=== PATIENT | female | born 1935 | race Caucasian/White ===

== ENCOUNTER 2016-05-05 19:33 | Inpatient (IN) | payer OTHER ==
[~2016-05-05] VITALS: Ht 160 cm; Wt 70.2 kg
[~2016-05-05 19:33] MED LIST: ACET-1256 PO; CAMPLOT10 TOP; CARBGEL OPB; CHOL100010 PO; CLX20 PO; DLCS PR; GABA1CAP PO; HMLI SC; INSDGI SC; IPRASOL4 INH; KETO2SHA TOP; MENTOIN TOP; SENN-65 PO; SIMV10TA2 PO
[2016-05-05 20:13] LABS: BASO % 0.1 %; BASO ABS # 0.02 K/uL (0-0.2); COMPLETE YES; HEMATOCRIT 44.8 % (37-47); IG% 0.3 %; LYMPH % 6.8 %; LYMPH ABS # 1.52 K/uL (1.2-3.4); MEAN CELL VOLUME 83.4 fL (80-100); MEAN CORPUSCULAR HEMOGLOBIN 28.1 pg (25-34); MEAN CORPUSCULAR HGB CONC 33.7 g/dl (32-36); MONO % 6.8 %; PLATELET COUNT 323 K/uL (130-400); RED BLOOD COUNT 5.37 M/uL (4.2-5.4); WHITE BLOOD COUNT 22.42 K/uL (4.8-10.8)
[2016-05-05] MEDS ORDERED: PIPERACILLIN/TAZOBACTAM 4.5 GM/100ML D5W IV STA (20:17)
--- NOTE | 2016-05-05 20:20 | DIAGNOSTIC IMAGING REPORT ---
CHEST ONE VIEW PORTABLE CLINICAL HISTORY: Altered mental status. COMPARISON STUDY: Chest radiograph October 30, 2015. FINDINGS: Lung volumes are normal. There is no consolidation. There is no evidence of pulmonary edema. Cardiomediastinal silhouette is normal. The appearance of the chest is unchanged. IMPRESSION: No acute cardiopulmonary findings. Electronically signed by: Haider Payne M.D. 05/05/2016 8:19 PM
[2016-05-05 20:25] LABS: PARTIAL THROMBOPLASTIN RATIO 0.8; PROTHROMBIN TIME (PATIENT) 10.7 SECONDS (9.0-12.0)
[2016-05-05 20:29] LABS: ALKALINE PHOSPHATASE 133 U/L (45-117); ALT/SGPT 28 U/L (12-78); AST/SGOT 14 U/L (15-37); BLOOD UREA NITROGEN 71 mg/dl (7-18); BUN/CREATININE RATIO 28.5 (10-20); CARBON DIOXIDE 31 mmol/L (21-32); CHLORIDE 115 mmol/L (98-107); GLUCOSE 356 mg/dl (70-99); POTASSIUM 3.8 mmol/L (3.5-5.1); SODIUM 156 mmol/L (136-145)
[2016-05-05] MEDS ORDERED: SODIUM CHLORIDE 0.9% 1000ML 1,000 ML IV STA (20:37)
[2016-05-05 20:40] LABS: BETA-HYDROXYBUTYRATE 1.69 mg/dL (0.2-2.81)
[2016-05-05 20:42] LABS: ISTAT HEMOGLOBIN 13.3 g/dl (12.0-16.0); ISTAT IONIZED CALCIUM 1.32 mmol/l (1.12-1.32)
[2016-05-05 21:11] LABS: MANUAL MICROSCOPIC REQUIRED? YES; URINE APPEARANCE SL CLOUDY (CLEAR); URINE BILIRUBIN NEG (NEG); URINE COLOR YELLOW; URINE NITRITE NEG (NEG); UROBILINOGEN NEG (NEG)
[2016-05-05 21:19] LABS: REVIEW REQ? NO
[2016-05-05 21:22] LABS: URINE RBC 0-4 /hpf (0-4)
[2016-05-05 21:23] LABS: URINE BACTERIA 2+ (NEG)
[2016-05-05 21:24] LABS: ZZURINE CULT IF INDIC CATH YES
[2016-05-05] MEDS ORDERED: INSULIN GLARGINE PER SC STA (21:38)
--- NOTE | 2016-05-05 21:40 | DIAGNOSTIC IMAGING REPORT ---
CT OF THE HEAD WITHOUT CONTRAST CLINICAL HISTORY: Altered mental status. COMPARISON STUDY: Head CT November 05, 2015. CT DOSE: 614.27 mGy.cm TECHNIQUE: Helical axial images of the head were obtained without IV contrast. Automated exposure control was utilized for the study. FINDINGS: No acute intracranial hemorrhage, midline shift or mass effect is present. Ventricular system is stable. The basilar cisterns are patent. Mild white matter hypodensity suggests small vessel disease. There are no findings to suggest acute dural sinus thrombosis or acute territorial infarct. There is no calvarial fracture. There is trace fluid within the bilateral mastoid air cells. There is minimal mucosal thickening of the sinuses. IMPRESSION: No acute intracranial findings. Electronically signed by: Haider Payne M.D. 05/05/2016 9:38 PM
[2016-05-05] MEDS ORDERED: GABA-113 PO (21:59)
[2016-05-05] MEDS ORDERED: INSU3INJ3 SQ (21:59)
[2016-05-05] MEDS ORDERED: ARTI1SOL11 OPB (22:26)
[2016-05-05] MEDS ORDERED: BACI500O11 TOP (22:26)
[2016-05-05] MEDS ORDERED: [UNRECOGNIZED DRUG - CODE] EXT (22:26)
[2016-05-05] MEDS ORDERED: MENTOIN12 EXT (22:26)
[2016-05-05] MEDS ORDERED: DEXT40GE PO (22:26)
[2016-05-05] MEDS ORDERED: MOMLX PO (22:26)
[2016-05-05] MEDS ORDERED: SODI1ENE PR (22:26)
[2016-05-05] MEDS ORDERED: BISA10SU38 PR (22:26)
[2016-05-05] MEDS ORDERED: TYL325X PO (22:26)
[2016-05-05] MEDS ORDERED: GLUCOSE 10 TABS/TUBE PO PRN (22:45)
[2016-05-05] MEDS ORDERED: GLUCAGON FOR INJ 1 MG VIAL SQ PRN (22:45)
[2016-05-05] MEDS ORDERED: ONDANSETRON INJ 2 MG/ML 2 ML VIAL IV PRN (22:45)
[2016-05-05] MEDS ORDERED: GLUCOSE 40% GEL 15 GM TUBE PO PRN (22:45)
[2016-05-05] MEDS ORDERED: DEXTROSE 50% 50 ML SYR IV PRN (22:45)
[2016-05-05] MEDS ORDERED: ACETAMINOPHEN 325 MG TAB PO PRN (22:45)
[2016-05-05] MEDS ORDERED: SODIUM CHLORIDE 0.9% 1000ML 1,000 ML IV SCH (23:00)
[2016-05-05] MEDS ORDERED: PHARMACY GLYCEMIC MGMT CONSULT PRN (23:02)
--- NOTE | 2016-05-05 23:18 | Pharmacy Progress Note ---
Glycemic Control Intl Consult Date of Service May 05, 2016. Scope Glycemic Pharmacist consulted by Leon Esparza on 05/05/16 for glycemic control and to write orders per [facility] inpatient glycemic control protocol Objective Weight (Kilograms): 64.600 Accuchecks BSG (last 24hrs): Test 05/05/16 19:30 Random Glucose 356 mg/dl (70-99) Laboratory Data (last 24hrs) Test 05/05/16 19:30 05/05/16 20:30 Anion Gap 10.0 mmol/L 21.0 mmol/L BUN/Creatinine Ratio 28.5 Blood Urea Nitrogen 71 mg/dl Creatinine 2.50 mg/dl Potassium Level 3.8 mmol/L Sodium Level 156 mmol/L White Blood Count 22.42 K/uL Red Blood Count 5.37 M/uL Hemoglobin 15.1 g/dL Hematocrit 44.8 % Mean Corpuscular Volume 83.4 fL Mean Corpuscular Hemoglobin 28.1 pg Mean Corpuscular Hemoglobin Concent 33.7 g/dl Platelet Count 323 K/uL Mean Platelet Volume 11.0 fL Neutrophils (%) (Auto) 86.0 % Lymphocytes (%) (Auto) 6.8 % Monocytes (%) (Auto) 6.8 % Eosinophils (%) (Auto) 0.0 % Basophils (%) (Auto) 0.1 % Neutrophils # (Auto) 19.29 K/uL Lymphocytes # (Auto) 1.52 K/uL Monocytes # (Auto) 1.52 K/uL Eosinophils # (Auto) 0.00 K/uL Basophils # (Auto) 0.02 K/uL Recent Pertinent Medications Outpatient Anti-diabetic Regimen: * Levemir 10 units SQ q HS * Humalog 4 units BID, 6 units daily The patient is currently receiving: * Basal insulin: none at this time * Correctional Insulin: NovoLog Correction per scale AC/HS Goal Range: Low 110 mg/dL - High 150 mg/dL Correction Factor: 30 mg/dL/unit * Prandial insulin: Per carb ratio of 1 unit per 10 grams CHO consumed Risk Factors for Insulin Resistance: * Steroids: none * Infection: Zosyn * Pressors: none * IVF: NSS bolus in ED * Recent Surgery: none * Diet: T2DM --> NPO * Mechanical Ventilation: n/a Assessment & Plan ASSESSMENT: * ADA & AACE recommend a goal blood sugar range 140-180 mg/dl for the majority of critically ill & non-critically ill patients. However, more stringent targets may be selected in individual cases. 05/05/16 * patient uses both basal and bolus insulin at home - elevated BSGs on admission * one time dose of Lantus given in ED * Will continue with basal/bolus insulin upon admission * basal dose will be determined by AM glycemic RPh * A1c - unknown at time of consult PLAN FOR INPATIENT GLYCEMIC CONTROL: * basal insulin to be determined on 05/06 by AM glycemic RPh * Continue with NovoLog AC and HS or q6H if NPO * Correction factor: 35mg/dL/unit * Carb ratio: 1 unit per 15g of CHO consumed * Goal range: 120-160mg/dL - CF/CR based on patient weight and a stress of 2 * A1c - order with AM labs * add to discharge instructions * Please note that the plan above was derived based on current level of insulin resistance and hospital stress. These recommendations are appropriate for inpatient admission only. Plan of care upon discharge will need to be reassessed to avoid potential outpatient hypo/hyperglycemia. Thank you.
[2016-05-05] MEDS ORDERED: INSULIN ASPART 100 UNITS/ML 3 ML PEN SC SCH ×2 (23:30)
--- NOTE | 2016-05-05 23:30 | History and Physical ---
History & Physical Date & Time of Service: May 05, 2016 at 22:45 Chief Complaint: Altered Mental Status, Hyperglycemia Primary Care Physician: Marry Rueda M.D. History of Present Illness Source: clinic records, snf This is an 80 year old female with PMH of Alzheimer's dementia, DM type 2, anxiety, depression, and other problems listed below who was sent to the ED from [facility] for hyperglycemia and altered mental status. I am unable to obtain history from the patient as she is nonverbal at this time. Per [facility] staff, this morning patient's blood sugar was >600 this am. Insulin was given, blood sugar remained in 400s, and additional insulin was given. Starting today patient was found to be less responsive than usual. At baseline she is minimally verbal with one word answers, but today she was nonverbal. Vital signs were stable at facility without any fevers. [facility] staff notes chronic cough and states she is on a pureed diet with honey thick liquids due to aspiration concerns. She requires a 2 person assist for ambulation and is dependent for ADL's. Patient ate 100% of breakfast but no lunch or dinner. [facility] staff denies recent SOB, vomiting, diarrhea. On review of clinic notes patient was seen y Dr. Rueda on 04/23 and her insulin dose was decreased due to episodic hypoglycemia. She was noted to be nonverbal during that examination. Past Medical/Surgical History Medical Problems: (1) Abnormality of gait Status: Chronic (2) Alzheimer's dementia Status: Chronic (3) CKD (chronic kidney disease), stage III Status: Chronic (4) Dementia Status: Chronic (5) DM type 2 (diabetes mellitus, type 2) Status: Chronic (6) Dyslipidemia Status: Chronic (7) Fecal incontinence Status: Chronic (8) Urinary incontinence Status: Chronic (9) Visual loss, bilateral Status: Chronic Surgical Problems: (1) No significant past surgical history Status: Chronic Family History Unobtainable as patient is nonverbal. Social History Smoking Status: Unknown if Ever Smoked Marital Status: Housing status: snf Occupational Status: retired Immunizations History of Influenza Vaccine: No History of Tetanus Vaccine?: No History of Pneumococcal: Yes Pneumococcal Date: Jan 17, 2009 History of Hepatitis B Vaccine: No Multi-Drug Resistant Organisms History of MDRO: No Allergies Coded Allergies: No Known Allergies (Unverified , 05/05/16) Home Medications Scheduled Acetaminophen (Tylenol), 500 MG PO QID Artificial Tear Solution (Genteal Tears Liquid Drop 0.1-0.2-0.3 %), 1 DROP OPB QID Bacitracin (Topical) (Bacitracin), 1 APPLN TOP BID Cholecalciferol (Vitamin D), 2,000 INTER.UNIT PO DAILY Citalopram (Celexa *), 10 MG PO DAILY Gabapentin (Neurontin), 100 MG PO QAM Gabapentin (Neurontin), 300 MG PO HS Insulin Detemir (Levemir Flextouch), 10 UNITS SQ HS Insulin Lispro (Humalog), 4 UNITS SC BID Insulin Lispro (Humalog), 6 UNITS SC DAILY Ketoconazole (Topical) (Ketoconazole), 1 APPLN TOP 2XWK Menthol-Zinc Oxide (Risamine), 1 APPLN EXT TID Senna/Docusate Sod (Senokot S), 2 TAB PO DAILY Simvastatin (Zocor), 10 MG PO QPM Sodium Phosphates (Fleet Enema Six Pack), 1 EA ID UD Scheduled PRN Acetaminophen (Tylenol), 650 MG PO Q4 PRN for Pain Bisacodyl (Dulcolax), 1 SUPP ID UD PRN for Constipation Camphor & Menthol (Men-Phor), 1 APPLN EXT Q4 PRN for Itching Dextrose (Diabetic Use) (Insta-Glucose), 1 TUBE PO UD PRN for HYPOGLYCEMIA PROTOCOL Magnesium Hydroxide (Milk of Magnesia), 30 ML PO UD PRN for Constipation Review of Systems Unobtainable as patient is nonverbal. Physical Exam Vital Signs Date Time Temp Pulse Resp B/P Pulse Ox O2 Delivery O2 Flow Rate FiO2 05/05/16 21:49 78 18 131/66 97 Nasal Cannula 3.0 05/05/16 20:56 77 18 101/46 96 Room Air 05/05/16 20:40 77 20 97 Nasal Cannula 2.0 05/05/16 20:03 88 05/05/16 19:45 36.4 95 18 124/51 93 Room Air General Appearance: + thin, + pertinent finding (alert 80 year old female, awake, staring straight ahead, nonverbal) Head: normocephalic, atraumatic Eyes: normal inspection, PERRL, EOMI, sclerae normal ENT: normal ENT inspection, hearing grossly normal, pharynx normal, + pertinent finding (dry oral mucosa) Neck: supple, trachea midline Respiratory/Chest: lungs clear, normal breath sounds, no respiratory distress Cardiovascular: regular rate, rhythm, no murmur Abdomen/GI: normal bowel sounds, non tender, soft Extremities/Musculoskelatal: no calf tenderness, no pedal edema Neurologic/Psych: alert, normal mood/affect, oriented x 3, + pertinent finding (generally weak, could follow a few simple commands- could sqeeze hands and move toes bilaterally strength 2/5) Skin: normal color, warm/dry, + pertinent finding (skin is dry ) Diagnostics Laboratory Results Results Past 24 Hours Test 05/05/16 19:30 05/05/16 20:30 05/05/16 20:45 Range/Units White Blood Count 22.42 4.8-10.8 K/uL Red Blood Count 5.37 4.2-5.4 M/uL Hemoglobin 15.1 12.0-16.0 g/dL Hematocrit 44.8 37-47 % Mean Corpuscular Volume 83.4 80-100 fL Mean Corpuscular Hemoglobin 28.1 25-34 pg Mean Corpuscular Hemoglobin Concent 33.7 32-36 g/dl Platelet Count 323 130-400 K/uL Mean Platelet Volume 11.0 7.4-10.4 fL Neutrophils (%) (Auto) 86.0 % Lymphocytes (%) (Auto) 6.8 % Monocytes (%) (Auto) 6.8 % Eosinophils (%) (Auto) 0.0 % Basophils (%) (Auto) 0.1 % Neutrophils # (Auto) 19.29 1.4-6.5 K/uL Lymphocytes # (Auto) 1.52 1.2-3.4 K/uL Monocytes # (Auto) 1.52 0.11-0.59 K/uL Eosinophils # (Auto) 0.00 0-0.5 K/uL Basophils # (Auto) 0.02 0-0.2 K/uL RDW Standard Deviation 43.7 36.4-46.3 fL RDW Coefficient of Variation 14.5 11.5-14.5 % Immature Granulocyte % (Auto) 0.3 % Immature Granulocyte # (Auto) 0.07 0.00-0.02 K/uL Prothrombin Time 10.7 9.0-12.0 SECONDS Prothromb Time International Ratio 1.0 0.9-1.1 Activated Partial Thromboplast Time 20.3 21.0-31.0 SECONDS Partial Thromboplastin Ratio 0.8 Sodium Level 156 136-145 mmol/L Potassium Level 3.8 3.5-5.1 mmol/L Chloride Level 115 98-107 mmol/L Carbon Dioxide Level 31 21-32 mmol/L Anion Gap 10.0 21.0 16-25 mmol/L Blood Urea Nitrogen 71 7-18 mg/dl Creatinine 2.50 0.60-1.20 mg/dl Est Creatinine Clear Calc Drug Dose 16.0 ml/min Estimated GFR () 20.2 Estimated GFR (Non- 17.4 BUN/Creatinine Ratio 28.5 10-20 Random Glucose 356 70-99 mg/dl Calcium Level 11.0 8.5-10.1 mg/dl Total Bilirubin 0.3 0.2-1 mg/dl Direct Bilirubin < 0.1 0-0.2 mg/dl Aspartate Amino Transf (AST/SGOT) 14 15-37 U/L Alanine Aminotransferase (ALT/SGPT) 28 12-78 U/L Alkaline Phosphatase 133 45-117 U/L Troponin I < 0.015 0-0.045 ng/ml Total Protein 8.6 6.4-8.2 gm/dl Albumin 4.0 3.4-5.0 gm/dl Beta-Hydroxybutyric Acid 1.69 0.2-2.81 mg/dL Bedside Hemoglobin 13.3 12.0-16.0 g/dl Bedside Hematocrit 39 37-47 % Bedside Sodium 159 135-144 mEq/L Bedside Potassium 3.6 3.3-5.0 mEq/L Bedside Chloride 115 101-112 mEq/L Bedside Total CO2 27 24-31 mEq/l Bedside Blood Urea Nitrogen 59 7-18 mg/dl Bedside Creatinine 2.0 0.6-1.3 mg/dl Bedside Glucose (other) 316 70-99 mg/dl Bedside Ionized Calcium (Freddy) 1.32 1.12-1.32 mmol/l Urine Color YELLOW Urine Appearance SL CLOUDY CLEAR Urine pH 5.0 4.5-7.5 Urine Specific [place] 1.020 1.000-1.030 Urine Protein NEG NEG Urine Glucose (UA) 3+ NEG Urine Ketones NEG NEG Urine Occult Blood TRACE NEG Urine Nitrite NEG NEG Urine Bilirubin NEG NEG Urine Urobilinogen NEG NEG Urine Leukocyte Esterase NEG NEG Urine RBC 0-4 0-4 /hpf Urine WBC 10-30 0-5 /hpf Urine Epithelial Cells 20-30 0-5 /lpf Urine Bacteria 2+ NEG Microbiology Results 05/05/16 Urine Culture, Received Pending Diagnostic Radiology CT OF THE HEAD WITHOUT CONTRAST CLINICAL HISTORY: Altered mental status. COMPARISON STUDY: Head CT November 05, 2015. CT DOSE: 614.27 mGy.cm TECHNIQUE: Helical axial images of the head were obtained without IV contrast. Automated exposure control was utilized for the study. FINDINGS: No acute intracranial hemorrhage, midline shift or mass effect is present. Ventricular system is stable. The basilar cisterns are patent. Mild white matter hypodensity suggests small vessel disease. There are no findings to suggest acute dural sinus thrombosis or acute territorial infarct. There is no calvarial fracture. There is trace fluid within the bilateral mastoid air cells. There is minimal mucosal thickening of the sinuses. IMPRESSION: No acute intracranial findings. CHEST ONE VIEW PORTABLE CLINICAL HISTORY: Altered mental status. COMPARISON STUDY: Chest radiograph October 30, 2015. FINDINGS: Lung volumes are normal. There is no consolidation. There is no evidence of pulmonary edema. Cardiomediastinal silhouette is normal. The appearance of the chest is unchanged. IMPRESSION: No acute cardiopulmonary findings. Impression Assessment and Plan METABOLIC ENCEPHALOPATHY Patient with underlying dementia; minimally verbal at baseline but currently nonverbal CT head- no acute findings Neuro checks q4 hours NPO until more alert; usually takes pureed diet with honey thick fluids ACUTE HYPERNATREMIA Sodium is 158 Likely from dehydration Received 1 liter bolus NSS in ER Will continue IVF's with 1/2 NSS at 50 mL/hour Goal is to decrease sodium 8 points in 24 hours Check serum osm, urine osm, urine sodium, urine creat, urine potassium Check BMP q4h Nephrology consulted- Dr. 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 due to UTI CXR- no infiltrate Check urine and blood cultures Received dose of Zosyn in ER Continue empiric Zosyn DERRICK Cr is 2.5 with baseline approximately 1.0 Possibly from poor PO intake Continue IVF's Monitor renal function Avoid nephrotoxins when able DEPRESSION Hold citalopram until more alert NEUROPATHY Hold gabapentin until more alert DVT PROPHYLAXIS SCD's CODE STATUS DNR as documented in [facility] records on chart Patient seen in collaboration with Dr. Trevino. Please see his addendum. Attending Note: Patient is interviewed and examined along with Aubree Esparza PA-C Patient is an 80 Yr old female with PMH of Dementia, DM II, anxiety, depression , neuropathy, CKD III presents from [facility] for evaluation of change in mental status and hyperglycemia. Patient is currently non verbal and could not provide any history. As per staff from snf and ER physician, patient was found to have blood glucose levels in 500s and seemed to be less responsive than at her baseline. At baseline she is minimally verbal. Patient was found to have blood sugar levels in 300s, Hypernatremia at 156, elevated BUN /Cr levels, Hemoglobin seemed to be concentrated, leukocytosis, Hypercalcemia and CT Head/CXR wnl. UA seemed to be a contaminated sample. Physical Exam Vital signs as noted above Chronic ill appearing/No acute distress NC/AT, EOMI, PERRL CVS: S1, S2, No murmur Resp: CTA Abd: Soft, non tender, BS present DIRECTOR OF FINANCE:Altered mental status, Able to move all extremities, complete neuro exam not performed because of patient's mental status Assessment and Plan: Metabolic Encephalopathy: Secondary to Hypernatremia Has baseline Dementia/difficult to assess CT head: wnl Keep her NPO for now Aspiration/fall precautions, Neuro checks Hold sedatives Acute Hypernatremia: Secondary to dehydration, Osmotic diuresis and poor oral intake Rehydrate IV fluids: 1/2NS at 50/Hr, Will increase to 100/Hr if no adequate correction Target Na levels: decrease by 8 points in 24 Hrs Check BNP Q4H Check Urinary Lytes Nephrology consulted DERRIKC on CKD III: On IV fluids Monitor renal function Avoid Nephrotoxic agents Uncontrolled DM II: BS levels better, No ketones in Urine ISS, Accu checks Check A1C Leukocytosis: Currently afebrile, No obvious source of infection Empirically cover with Zosyn Blood/Urine cultures Check lactate levels VTE Prophylaxis VTE Risk Assessment Done? Y/N: Yes Risk Level: High
[2016-05-05 23:51] VITALS: BP 119/68; PULSE 89; TEMP 36.4; O2SAT 97; Ht 160 cm; Wt 70.2 kg
[2016-05-06] VITALS (9 sets, daily range): BP systolic 108–129; BP diastolic 62–73; PULSE 67–82; TEMP 36.3–37; O2SAT 95–99
[2016-05-06] MEDS: INSULIN ASPART 100 UNITS/ML 3 ML PEN SC SCH ×7 (00:43→23:57)
[2016-05-06] MEDS: SODIUM CHLORIDE 0.45% 1000ML 1,000 ML IV SCH ×3 (00:44→21:26)
[2016-05-06 01:05] LABS: BUN/CREATININE RATIO 32.6 (10-20); CALCIUM 9.5 mg/dl (8.5-10.1); CREATININE 2.1 mg/dl (0.60-1.20)
[2016-05-06 01:23] LABS: BETA-HYDROXYBUTYRATE 8.11 mg/dL (0.2-2.81)
[2016-05-06] MEDS: PIPERACILL/TAZOBAC IV 3.375 GM in DEXTROSE 5% 100ML 100 ML IV SCH ×3 (02:19→17:29)
--- NOTE | 2016-05-06 03:41 | EMERGENCY ROOM VISIT NOTE ---
History Report prepared by Lioibteo: Tari Billy Under the Supervision of: Dr. Xavi Adkins D.O. First contact with patient: 19:47 Chief Complaint: HYPERGLYCEMIA Stated Complaint: ALTERED MENTAL STATUS, HYPERGLYCEMIA Nursing Triage Summary: Pt arrives by ALS from [facility] for hyperglycemia. Per staff pt woke with high BSG, 500s. They gave her her insulin, then after eating BSG went up again. Pt has hx of Dementia. Per staff pt had AMS today, pt obeys commands. Per staff pt is sometimes verbal. pt not speaking in ED History of Present Illness The patient is a 80 year old female who presents to the Emergency Room via ALS to be evaluated for persistent hyperglycemia with onset this morning. Per nursing staff, the patient is a resident at [facility]. The patient had a high BSG, in the 500s, when she woke up. The staff at [facility] gave her insulin, but after eating her BSG increased. Today, the patient also had an episode of altered mental status. The patient has a history of dementia. The history is limited due to the patient's condition. Source of History: nursing staff History Limited By: other (patient's condition) Onset: this morning Position: other Quality: other (hyperglycemia ) Timing: other (persistent) Note: The patient had an episode of altered mental status today. Review of Systems The review of systems is limited due to patient's condition. 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, bilateral Surgical Problems: (1) No significant past surgical history Family History No pertinent family history Social History Smoking Status: Unknown if Ever Smoked Drug Use: none Marital Status: Housing Status: custodial Occupation Status: retired Current/Historical Medications Scheduled Acetaminophen (Tylenol), 500 MG PO QID Artificial Tear Solution (Genteal Tears Liquid Drop 0.1-0.2-0.3 %), 1 DROP OPB QID Bacitracin (Topical) (Bacitracin), 1 APPLN TOP BID Cholecalciferol (Vitamin D), 2,000 INTER.UNIT PO DAILY Citalopram (Celexa *), 10 MG PO DAILY Gabapentin (Neurontin), 100 MG PO QAM Gabapentin (Neurontin), 300 MG PO HS Insulin Detemir (Levemir Flextouch), 10 UNITS SQ HS Insulin Lispro (Humalog), 4 UNITS SC BID Insulin Lispro (Humalog), 6 UNITS SC DAILY Ketoconazole (Topical) (Ketoconazole), 1 APPLN TOP 2XWK Menthol-Zinc Oxide (Risamine), 1 APPLN EXT TID Senna/Docusate Sod (Senokot S), 2 TAB PO DAILY Simvastatin (Zocor), 10 MG PO QPM Sodium Phosphates (Fleet Enema Six Pack), 1 EA CA UD Scheduled PRN Acetaminophen (Tylenol), 650 MG PO Q4 PRN for Pain Bisacodyl (Dulcolax), 1 SUPP CA UD PRN for Constipation Camphor & Menthol (Men-Phor), 1 APPLN EXT Q4 PRN for Itching Dextrose (Diabetic Use) (Insta-Glucose), 1 TUBE PO UD PRN for HYPOGLYCEMIA PROTOCOL Magnesium Hydroxide (Milk of Magnesia), 30 ML PO UD PRN for Constipation Allergies Coded Allergies: No Known Allergies (Unverified , 05/05/16) Physical Exam Vital Signs Date Time Temp Pulse Resp B/P Pulse Ox O2 Delivery O2 Flow Rate FiO2 05/05/16 21:49 78 18 131/66 97 Nasal Cannula 3.0 05/05/16 20:56 77 18 101/46 96 Room Air 05/05/16 20:40 77 20 97 Nasal Cannula 2.0 05/05/16 20:03 88 05/05/16 19:45 36.4 95 18 124/51 93 Room Air Physical Exam GENERAL: Lying in bed, chronically ill appearing, no responding verbally. EYE EXAM: normal conjunctiva, PERRL OROPHARYNX: no exudate, no erythema, lips, buccal mucosa, and tongue normal and mucous membranes are moist NECK: supple, no nuchal rigidity, no adenopathy, non-tender LUNGS: Clear to auscultation. Normal chest wall mechanics HEART: no murmurs, S1 normal and S2 normal ABDOMEN: abdomen soft, non-tender, normo-active bowel sounds, no masses, no rebound or guarding. BACK: Back is symmetrical on inspection and there is no deformity, no midline tenderness, no CVA tenderness. SKIN: no rashes and no bruising UPPER EXTREMITIES: upper extremities are grossly normal. IV in left upper extremity. LOWER EXTREMITIES: No pitting edema. NEURO EXAM: Alert, wiggles toes to commands and squeezes upper extremities to command as well as tongue, nonverbal. Medical Decision & Procedures ER Provider Diagnostic Interpretation: Xray results per the radiologist and my interpretation. Other results have been interpreted by the radiologist and reviewed by me. CHEST ONE VIEW PORTABLE CLINICAL HISTORY: Altered mental status. COMPARISON STUDY: Chest radiograph October 30, 2015. FINDINGS: Lung volumes are normal. There is no consolidation. There is no evidence of pulmonary edema. Cardiomediastinal silhouette is normal. The appearance of the chest is unchanged. IMPRESSION: No acute cardiopulmonary findings. Electronically signed by: Haider Payne M.D. 05/05/2016 8:[address] OF THE HEAD WITHOUT CONTRAST CLINICAL HISTORY: Altered mental status. COMPARISON STUDY: Head CT November 05, 2015. CT DOSE: 614.27 mGy.cm TECHNIQUE: Helical axial images of the head were obtained without IV contrast. Automated exposure control was utilized for the study. FINDINGS: No acute intracranial hemorrhage, midline shift or mass effect is present. Ventricular system is stable. The basilar cisterns are patent. Mild white matter hypodensity suggests small vessel disease. There are no findings to suggest acute dural sinus thrombosis or acute territorial infarct. There is no calvarial fracture. There is trace fluid within the bilateral mastoid air cells. There is minimal mucosal thickening of the sinuses. IMPRESSION: No acute intracranial findings. Electronically signed by: Haider Payne M.D. 05/05/2016 9:38 PM Laboratory Results 05/05/16 19:30 Red Blood Count 5.37, Mean Corpuscular Volume 83.4, Mean Corpuscular Hemoglobin 28.1, Mean Corpuscular Hemoglobin Concent 33.7, Mean Platelet Volume 11.0, Neutrophils (%) (Auto) 86.0, Lymphocytes (%) (Auto) 6.8, Monocytes (%) (Auto) 6.8, Eosinophils (%) (Auto) 0.0, Basophils (%) (Auto) 0.1, Neutrophils # (Auto) 19.29, Lymphocytes # (Auto) 1.52, Monocytes # (Auto) 1.52, Eosinophils # (Auto) 0.00, Basophils # (Auto) 0.02 Test 05/05/16 19:30 05/05/16 20:30 05/05/16 20:45 White Blood Count 22.42 K/uL (4.8-10.8) Red Blood Count 5.37 M/uL (4.2-5.4) Hemoglobin 15.1 g/dL (12.0-16.0) Hematocrit 44.8 % (37-47) Mean Corpuscular Volume 83.4 fL (80-100) Mean Corpuscular Hemoglobin 28.1 pg (25-34) Mean Corpuscular Hemoglobin Concent 33.7 g/dl (32-36) Platelet Count 323 K/uL (130-400) Mean Platelet Volume 11.0 fL (7.4-10.4) Neutrophils (%) (Auto) 86.0 % Lymphocytes (%) (Auto) 6.8 % Monocytes (%) (Auto) 6.8 % Eosinophils (%) (Auto) 0.0 % Basophils (%) (Auto) 0.1 % Neutrophils # (Auto) 19.29 K/uL (1.4-6.5) Lymphocytes # (Auto) 1.52 K/uL (1.2-3.4) Monocytes # (Auto) 1.52 K/uL (0.11-0.59) Eosinophils # (Auto) 0.00 K/uL (0-0.5) Basophils # (Auto) 0.02 K/uL (0-0.2) RDW Standard Deviation 43.7 fL (36.4-46.3) RDW Coefficient of Variation 14.5 % (11.5-14.5) Immature Granulocyte % (Auto) 0.3 % Immature Granulocyte # (Auto) 0.07 K/uL (0.00-0.02) Prothrombin Time 10.7 SECONDS (9.0-12.0) Prothromb Time International Ratio 1.0 (0.9-1.1) Activated Partial Thromboplast Time 20.3 SECONDS (21.0-31.0) Partial Thromboplastin Ratio 0.8 Total Bilirubin 0.3 mg/dl (0.2-1) Direct Bilirubin < 0.1 mg/dl (0-0.2) Aspartate Amino Transf (AST/SGOT) 14 U/L (15-37) Alanine Aminotransferase (ALT/SGPT) 28 U/L (12-78) Alkaline Phosphatase 133 U/L (45-117) Troponin I < 0.015 ng/ml (0-0.045) Total Protein 8.6 gm/dl (6.4-8.2) Albumin 4.0 gm/dl (3.4-5.0) Bedside Hemoglobin 13.3 g/dl (12.0-16.0) Bedside Hematocrit 39 % (37-47) Bedside Sodium 159 mEq/L (135-144) Bedside Potassium 3.6 mEq/L (3.3-5.0) Bedside Chloride 115 mEq/L (101-112) Bedside Total CO2 27 mEq/l (24-31) Bedside Blood Urea Nitrogen 59 mg/dl (7-18) Bedside Creatinine 2.0 mg/dl (0.6-1.3) Bedside Glucose (other) 316 mg/dl (70-99) Bedside Ionized Calcium (Freddy) 1.32 mmol/l (1.12-1.32) Urine Color YELLOW Urine Appearance SL CLOUDY (CLEAR) Urine pH 5.0 (4.5-7.5) Urine Specific [place] 1.020 (1.000-1.030) Urine Protein NEG (NEG) Urine Glucose (UA) 3+ (NEG) Urine Ketones NEG (NEG) Urine Occult Blood TRACE (NEG) Urine Nitrite NEG (NEG) Urine Bilirubin NEG (NEG) Urine Urobilinogen NEG (NEG) Urine Leukocyte Esterase NEG (NEG) Urine RBC 0-4 /hpf (0-4) Urine WBC 10-30 /hpf (0-5) Urine Epithelial Cells 20-30 /lpf (0-5) Urine Bacteria 2+ (NEG) Laboratory results per my review. Medications Administered Medications (Trade) Dose Ordered Sig/Christiane Route Start Time Stop Time Status Last Admin Dose Admin Piperacillin Sod/ Tazobactam Sod 4.5 gm 4.5 gm NOW STAT IV 05/05/16 20:17 05/05/16 20:18 DC 05/05/16 20:56 4.5 GM Sodium Chloride 1,000 ml @ 999 mls/hr Q1H1M STAT IV 05/05/16 20:37 05/05/16 21:37 DC 05/05/16 20:56 999 MLS/HR Insulin Glargine/ Syringe (Lantus Per Unit/ Syringe) 0.04 ml @ 0 mls/min ONE STAT SC 05/05/16 21:38 05/05/16 21:47 DC 05/05/16 21:57 0.04 MLS/MIN ECG Indication: altered mental status Rate (beats per minute): 81 Rhythm: sinus rhythm Findings: left axis deviation, other (flipped T wave in lateral leads) Comparison ECG Date: 11/05/2015 Change: Compared to previous EKG, flipped T waves are new. ED Course ED COURSE: Vital signs were reviewed and showed normal vital signs. The patients medical record was reviewed The above diagnostic studies were performed and reviewed. ED treatments and interventions as stated above. 1951: The patient was evaluated in room C2. A complete history and physical examination was performed. 2016: Zosyn 4.5 gm IV 2036: Sodium Chloride 1000 ml @ 999 mls/hr IV 2048: I reevaluated the patient. 2137: Insulin Glargine 4 units 0.04 ml @ 0 mls/min SC 2146: I discussed the case with Aubree Esparza PA-C ([facility]); she will further evaluate the patient. Based on the patients age, coexisting illnesses, exam and lab findings the decision to treat as an inpatient was made. The patient remained stable while under my care. The patient will be evaluated for further management. Medical Decision The patient is an 80 year old female who presents to the ED with complaints of hyperglycemia. Per report patient has been confused and not at her baseline. IV and labs were obtained. She leukocytosis 22,000. BMP showed a sodium of 156 along with a creatinine of 2.1. BSG was in the mid 300s. UA shows white count along with epithelial cells and bacteria. She is covered with broad- spectrum antibiotics. I did give her a bolus normal saline as I favor chest likely dry. Her blood sugar treated down with the fluids. CT head was unremarkable. She is nonfocal on exam. Chest x-ray shows no focal infiltrate. I do favor the majority of her symptoms are secondary to dehydration and possible UTI. Cannot be certain. Patient was admitted for sepsis and likely dehydration. Differential diagnoses includes but is not limited to toxic, metabolic, infectious, traumatic, cardiac, neurologic, hematologic, psychiatric and inflammatory etiologies. Consults Time Called: 2144 Consulting Physician: Aubree Esparza PA-C ([facility]) Returned Call: 2146 I discussed the case with Aubree Esparza PA-C ([facility]); she will further evaluate the patient. Impression Primary Impression: Sepsis Additional Impressions: Altered mental status, Hypernatremia, Hyperglycemia Scribe Attestation The scribe's documentation has been prepared under my direction and personally reviewed by me in its entirety. I confirm that the note above accurately reflects all work, treatment, procedures, and medical decision making performed by me. Departure Information Dispostion Being Evaluated By Hospitalist Referrals No Doctor, Assigned (PCP) Patient Instructions A Signature Page, My [facility]
[2016-05-06 04:30] LABS: HEMATOCRIT 39.8 % (37-47); MEAN CORPUSCULAR HEMOGLOBIN 27.6 pg (25-34); MEAN CORPUSCULAR HGB CONC 32.4 g/dl (32-36); MEAN PLATELET VOLUME 10.6 fL (7.4-10.4); PLATELET COUNT 232 K/uL (130-400); RED BLOOD COUNT 4.68 M/uL (4.2-5.4); WHITE BLOOD COUNT 16.91 K/uL (4.8-10.8)
[2016-05-06 04:59] LABS: BUN/CREATININE RATIO 31.8 (10-20); CALCIUM 9.7 mg/dl (8.5-10.1); CREATININE 2.2 mg/dl (0.60-1.20); MAGNESIUM 2.7 mg/dl (1.8-2.4); POTASSIUM 3.8 mmol/L (3.5-5.1)
[2016-05-06 05:13] LABS: BETA-HYDROXYBUTYRATE 1.71 mg/dL (0.2-2.81)
[2016-05-06] MEDS ORDERED: NURSING VERBAL MED ORDER ONE ×2 (05:15→21:15)
[2016-05-06 07:54] LABS: ESTIMATED AVERAGE GLUCOSE 217 mg/dl; HA1C FLAG Normal (Normal)
[2016-05-06] MEDS ORDERED: INFLUENZA ADMINISTRATION CHARGE ONE (08:00)
[2016-05-06] MEDS ORDERED: PNEUMOCOCCAL ADMINISTRATION CHARGE ONE (08:00)
[2016-05-06] MEDS ORDERED: INFLUENZA VIRUS QUAD VACCINE 0.5 ML SYR IM. ONE (08:00)
[2016-05-06] MEDS ORDERED: PNEUMOCOCCAL POLYSACCHARIDES 25 MCG/0.5 ML VIAL/SYR IM. ONE (08:00)
[2016-05-06] MEDS ORDERED: INSULIN DETEMIR FLEXPEN/FLEX TOUCH 100 UNITS/ML 3ML SC ONE (08:45)
[2016-05-06] MEDS ORDERED: ACETAMINOPHEN 500 MG TAB PO SCH (09:00)
[2016-05-06] MEDS ORDERED: CITALOPRAM 20 MG TAB PO SCH (09:00)
[2016-05-06] MEDS ORDERED: GABAPENTIN 100 MG CAP PO SCH (09:00)
[2016-05-06] MEDS ORDERED: CHOLECALCIFEROL 1000 INTER.UNIT TAB PO SCH (09:00)
[2016-05-06] MEDS ORDERED: DOCUSATE SODIUM/SENNA 50/8.6MG TAB PO SCH (09:00)
[2016-05-06] MEDS: MENTHOL-ZINC OXIDE 360 APPLN/120 GM TUBE EXT SCH ×3 (09:31→21:00)
[2016-05-06] MEDS: BACITRACIN OINT 15 GM TUBE EXT SCH ×2 (09:31→21:00)
[2016-05-06] MEDS: ARTIFICIAL TEARS OP SOLN OPB SCH ×8 (09:31→21:00)
--- NOTE | 2016-05-06 09:34 | NEPHROLOGY CONSULTATION ---
DATE OF CONSULTATION: 05/06/2016 ATTENDING OF RECORD: Dr. Edgar. REASON FOR CONSULTATION: DERRICK and hypernatremia. This is an 80-year-old female with underlying Alzheimer's dementia who presents with altered mental status. Found to have hyperglycemia, DERRICK with a creatinine of 2.5 and sodium level of 156. The patient has had decreased mental status at baseline. She is minimally verbal. She is normally on a pureed diet with honey thickened liquids. Does require a 2-person assist. The patient currently minimally responsive, not following any commands. PAST MEDICAL HISTORY: Alzheimer dementia, CKD stage 3 with baseline creatinine of 1, type 2 diabetes, hyperlipidemia, gait abnormality. PAST SURGICAL HISTORY: Not known. FAMILY HISTORY: Not known. SOCIAL HISTORY: Currently in a prison. Unknown history of previous smoking, alcohol or drugs. REVIEW OF SYSTEMS: Unable to obtain. CURRENT MEDICATIONS: The patient is on ketaconazole, Artificial Tears, Zosyn 3.375 IV q. 8, half normal saline at 125 mL an hour. PHYSICAL EXAMINATION: VITAL SIGNS: Temperature 36.6, pulse 82, respiratory rate 18, blood pressure 113/67, satting 98% on 2 liters. GENERAL: Awake, minimally responsive. HEENT: Mucous membranes are dry. NECK: Supple. PULMONARY: Clear to auscultation. CARDIAC: Regular rate and rhythm. ABDOMEN: Bowel sounds positive, soft, nontender. EXTREMITIES: No significant clubbing, cyanosis or edema. NEUROLOGICALLY: Altered mental status with minimal responsiveness. DERMATOLOGIC: No significant rash or ulcers noted. LABORATORIES: Pending for this morning. Latest one, sodium level 158, potassium 3.8, chloride is 119, bicarbonate is 30, BUN 70, creatinine is 2.2, glucose 389, hemoglobin A1c of 9.2, magnesium level is elevated at 2.7. White count 16, H\T\H 12 and 39, platelet count is 232. INR is 1. UA with 10-30 WBCs, trace blood, 3+ glucose, pH of 5, specific gravity 1.020. Head CT: No acute intracranial findings. Chest x-ray shows no acute cardiopulmonary findings. Blood cultures are pending. Urine culture is positive for gram negative bacilli. ASSESSMENT AND PLAN: 1. Hypernatremia. The patient with dehydration and is currently on half normal saline, trying to slowly correct. Sodium level is 158 and would like to correct by about 8 points over the next 24 hours. patient was on half normal saline at 75 mL an hour and have increased the rate to 125 mL an hour. If sodium level not improving appropriately, may consider switching to D5W. 2. Acute kidney injury/acute tubular necrosis in the setting of gram negative urinary tract infection, on antibiotics. Currently receiving half normal saline for both trying to correct the sodium and providing appropriate volume resuscitation. No indication for emergent dialysis at this time. Will follow levels. 3. Hypermagnesemia. A magnesium levels has been on hold and hopefully mag levels continue to improve as kidney function improves with volume resuscitation. Overall, the patient in a prerenal state, plus dehydration, causing both hypernatremia and acute kidney injury in the setting of gram negative urinary tract infection. Blood cultures are pending. Vital signs are stable. Continue following the sodium levels throughout the day with a goal of correction of 8 points in the next 24 hours and adjusting fluids accordingly. If sodium levels continue to trend up, will switch to D5W to try to help reach our goal in the next 24 hours. I appreciate consultation. NIRMAL
--- NOTE | 2016-05-06 10:36 | Pharmacy Progress Note ---
Glycemic Control: Progress Nt Date of Service May 06, 2016. Scope Glycemic Pharmacist consulted by GARETT Lara on 05/05/16 for glycemic control and to write orders per [facility], located within [facility] inpatient glycemic control protocol. Objective Accuchecks BSG (last 24hrs): Test 05/05/16 19:30 05/06/16 00:25 05/06/16 00:28 05/06/16 04:15 Random Glucose 356 mg/dl (70-99) 399 mg/dl (70-99) 389 mg/dl (70-99) Bedside Glucose 390 mg/dl (70-90) 338 mg/dl (70-90) Test 05/06/16 06:45 05/06/16 06:47 05/06/16 08:15 05/06/16 09:25 Bedside Glucose 350 mg/dl (70-90) 378 mg/dl (70-90) 345 mg/dl (70-90) Laboratory Data (last 24hrs) Test 05/05/16 19:30 05/05/16 20:30 05/06/16 00:28 05/06/16 04:15 Anion Gap 10.0 mmol/L 21.0 mmol/L 9.0 mmol/L 9.0 mmol/L BUN/Creatinine Ratio 28.5 32.6 31.8 Blood Urea Nitrogen 71 mg/dl 69 mg/dl 70 mg/dl Creatinine 2.50 mg/dl 2.10 mg/dl 2.20 mg/dl Potassium Level 3.8 mmol/L 4.0 mmol/L 3.8 mmol/L Sodium Level 156 mmol/L 156 mmol/L 158 mmol/L White Blood Count 22.42 K/uL 16.91 K/uL Red Blood Count 5.37 M/uL Hemoglobin 15.1 g/dL Hematocrit 44.8 % Mean Corpuscular Volume 83.4 fL Mean Corpuscular Hemoglobin 28.1 pg Mean Corpuscular Hemoglobin Concent 33.7 g/dl Platelet Count 323 K/uL Mean Platelet Volume 11.0 fL Neutrophils (%) (Auto) 86.0 % Lymphocytes (%) (Auto) 6.8 % Monocytes (%) (Auto) 6.8 % Eosinophils (%) (Auto) 0.0 % Basophils (%) (Auto) 0.1 % Neutrophils # (Auto) 19.29 K/uL Lymphocytes # (Auto) 1.52 K/uL Monocytes # (Auto) 1.52 K/uL Eosinophils # (Auto) 0.00 K/uL Basophils # (Auto) 0.02 K/uL Hemoglobin A1c 9.2 % Test 05/06/16 09:25 HbA1c: Test 05/06/16 04:15 Hemoglobin A1c 9.2 % (4.5-5.6) H Recent Pertinent Medications Outpatient Anti-diabetic Regimen: * Levemir 10 units SQ QHS * Humalog 4 units SQ BID, with lunch and dinner * A1c = 9.2% (05/06/16) The patient is currently receiving: * Basal insulin: Lantus 4 units x1 dose given in ED last night * Correctional Insulin: Novolog Correction per scale ACHS Goal Range: Low 110 mg/dL - High 160 mg/dL Correction Factor: 35 mg/dL/unit * Prandial insulin: Per carb ratio of 1 unit per 15 grams CHO consumed Risk Factors for Insulin Resistance: * Infection: Zosyn (empiric coverage for leukocytosis on admission) * IVF: 1/2 NSS @ 125cc/hr * Diet: Type 2 diabetic (pureed/honey thick) -- NPO when pt is not alert Assessment & Plan ASSESSMENT: 05/06/16 * Patient has been hyperglycemic since admission last evening. * Patient received 4 units of Lantus in the ED. * Levemir resumed this morning with a dose of 5 units, to help make up for the basal insulin deficiency from last night's reduced dose. Hope to be able to resume home dose this evening. * BSGs elevated pre-lunch, so will administer evening Levemir early today. * Recently, insulin doses adjusted as an outpatient d/t episodic hypoglycemia, so will adjust cautiously until hyperglycemia is resolved. * Patient has baseline mental status of Alzheimer's dementia, but admitted with decreased mental status/decreased alertness. NPO until alertness improves. * ADA & AACE recommend a goal blood sugar range 140-180 mg/dl for the majority of critically ill & non-critically ill patients. However, more stringent targets may be selected in individual cases. PLAN FOR INPATIENT GLYCEMIC CONTROL: * Continue Levemir 10 units SQ QHS * Dose today at 1500 rather than 2100 * Novolog for correctional/prandial coverage, accu-checks q4h until BSGs stable -- tighten parameters slightly * Correction factor: 30 mg/dl/unit * Carb ratio: 1 unit per 12 grams CHO consumed * Goal range: Low 110 mg/dL - High 160 mg/dL * Please note that the plan above was derived based on current level of insulin resistance and hospital stress. These recommendations are appropriate for inpatient admission only. Plan of care upon discharge will need to be reassessed to avoid potential outpatient hypo/hyperglycemia. Thank you.
[2016-05-06 10:38] LABS: BUN/CREATININE RATIO 37.4 (10-20); CALCIUM 9.4 mg/dl (8.5-10.1); CREATININE 1.9 mg/dl (0.60-1.20); POTASSIUM 3.8 mmol/L (3.5-5.1)
[2016-05-06 10:52] LABS: BETA-HYDROXYBUTYRATE 1.35 mg/dL (0.2-2.81)
[2016-05-06 12:38] LABS: CALCIUM 9.4 mg/dl (8.5-10.1); CREATININE 1.7 mg/dl (0.60-1.20); POTASSIUM 3.7 mmol/L (3.5-5.1)
[2016-05-06 12:50] LABS: BETA-HYDROXYBUTYRATE 1.16 mg/dL (0.2-2.81)
[2016-05-06] MEDS: INSULIN DETEMIR FLEXPEN/FLEX TOUCH 100 UNITS/ML 3ML SC SCH (16:13)
[2016-05-06 17:08] LABS: BUN/CREATININE RATIO 49.9 (10-20); CREATININE 1.4 mg/dl (0.60-1.20); POTASSIUM 3.7 mmol/L (3.5-5.1)
--- NOTE | 2016-05-06 18:29 | Progress Note ---
Internal Med Progress Note Date of Service: May 06, 2016. Provider Documentation: SUBJECTIVE: remains non verbal , staring at the ceiling , does not respond to voice OBJECTIVE: Vital Signs-as noted below Exam: limited exam as pt unable to co-operate General-elderly female, not verbalizing, staring straight Eyes-sclera non icteric Neck-no thyromegaly detected Lungs-diminished Heart-regular Abdomen-soft, Extremities-no rash noted Neuro-dementia, unable to follow command Lab data as noted below. ASSESSMENT & PLAN: METABOLIC ENCEPHALOPATHY worsening of mental status /metabolic encephalopathy due to electrolyte derangement , dehydration , infection Patient with underlying dementia; minimally verbal at baseline but currently nonverbal CT head- no acute findings NPO except for sip of water /ice chips -till pt is able to follow command , more oriented aspiration precaution baseline diet : pureed diet with honey thick fluids ACUTE HYPERNATREMIA Sodium is 158-> 156 Likely from dehydration on IVF's with 1/2 NSS rate increased 125 mL/hour Goal is to decrease sodium 8 points in 24 hours cont to Check BMP q4h Nephrology consulted- Dr. 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 No evidence of DKA Received 4 units glargine in ER insulin sliding scale coverage Consult pharmacy for glycemic management UTI: Urine cx -gram negative bacilli Continue empiric Zosyn awaiting sensitivity DERRICK /ATN due to dehydration has CKD stage 3 Cr is 2.5 with baseline approximately 1.0 Continue IVF's renal function gradually improving Cr 1.4 today Monitor renal function Avoid nephrotoxins when able Nephrology following DEPRESSION Hold citalopram until more alert NEUROPATHY Hold gabapentin until more alert DVT PROPHYLAXIS SCD's CODE STATUS DNR as documented in [facility] records on chart DISPOSITION return to [facility] when medically stable Vital Signs: Date Time Temp Pulse Resp B/P Pulse Ox O2 Delivery O2 Flow Rate FiO2 05/06/16 16:00 96 Nasal Cannula 2.0 05/06/16 15:29 36.6 67 20 114/62 96 Nasal Cannula 1.0 05/06/16 12:00 95 Nasal Cannula 2.0 05/06/16 11:00 37.0 69 16 129/73 95 2.0 05/06/16 08:00 98 Nasal Cannula 2.0 05/06/16 07:00 36.6 82 18 113/67 98 Nasal Cannula 2.0 05/06/16 04:10 36.4 81 18 108/66 97 Nasal Cannula 2.0 05/05/16 23:51 36.4 89 18 119/68 97 Nasal Cannula 2.0 05/05/16 22:47 73 18 108/49 97 Nasal Cannula 2.5 05/05/16 21:49 78 18 131/66 97 Nasal Cannula 3.0 05/05/16 20:56 77 18 101/46 96 Room Air 05/05/16 20:40 77 20 97 Nasal Cannula 2.0 05/05/16 20:03 88 05/05/16 19:45 36.4 95 18 124/51 93 Room Air Lab Results: Results Past 24 Hours Test 05/05/16 19:30 05/05/16 19:43 05/05/16 20:30 05/05/16 20:45 Range/Units White Blood Count 22.42 4.8-10.8 K/uL Red Blood Count 5.37 4.2-5.4 M/uL Hemoglobin 15.1 12.0-16.0 g/dL Hematocrit 44.8 37-47 % Mean Corpuscular Volume 83.4 80-100 fL Mean Corpuscular Hemoglobin 28.1 25-34 pg Mean Corpuscular Hemoglobin Concent 33.7 32-36 g/dl Platelet Count 323 130-400 K/uL Mean Platelet Volume 11.0 7.4-10.4 fL Neutrophils (%) (Auto) 86.0 % Lymphocytes (%) (Auto) 6.8 % Monocytes (%) (Auto) 6.8 % Eosinophils (%) (Auto) 0.0 % Basophils (%) (Auto) 0.1 % Neutrophils # (Auto) 19.29 1.4-6.5 K/uL Lymphocytes # (Auto) 1.52 1.2-3.4 K/uL Monocytes # (Auto) 1.52 0.11-0.59 K/uL Eosinophils # (Auto) 0.00 0-0.5 K/uL Basophils # (Auto) 0.02 0-0.2 K/uL RDW Standard Deviation 43.7 36.4-46.3 fL RDW Coefficient of Variation 14.5 11.5-14.5 % Immature Granulocyte % (Auto) 0.3 % Immature Granulocyte # (Auto) 0.07 0.00-0.02 K/uL Prothrombin Time 10.7 9.0-12.0 SECONDS Prothromb Time International Ratio 1.0 0.9-1.1 Activated Partial Thromboplast Time 20.3 21.0-31.0 SECONDS Partial Thromboplastin Ratio 0.8 Sodium Level 156 136-145 mmol/L Potassium Level 3.8 3.5-5.1 mmol/L Chloride Level 115 98-107 mmol/L Carbon Dioxide Level 31 21-32 mmol/L Anion Gap 10.0 21.0 16-25 mmol/L Blood Urea Nitrogen 71 7-18 mg/dl Creatinine 2.50 0.60-1.20 mg/dl Est Creatinine Clear Calc Drug Dose 16.0 ml/min Estimated GFR () 20.2 Estimated GFR (Non- 17.4 BUN/Creatinine Ratio 28.5 10-20 Random Glucose 356 70-99 mg/dl Calcium Level 11.0 8.5-10.1 mg/dl Total Bilirubin 0.3 0.2-1 mg/dl Direct Bilirubin < 0.1 0-0.2 mg/dl Aspartate Amino Transf (AST/SGOT) 14 15-37 U/L Alanine Aminotransferase (ALT/SGPT) 28 12-78 U/L Alkaline Phosphatase 133 45-117 U/L Troponin I < 0.015 0-0.045 ng/ml Total Protein 8.6 6.4-8.2 gm/dl Albumin 4.0 3.4-5.0 gm/dl Beta-Hydroxybutyric Acid 1.69 0.2-2.81 mg/dL Bedside Glucose 304 70-90 mg/dl Bedside Hemoglobin 13.3 12.0-16.0 g/dl Bedside Hematocrit 39 37-47 % Bedside Sodium 159 135-144 mEq/L Bedside Potassium 3.6 3.3-5.0 mEq/L Bedside Chloride 115 101-112 mEq/L Bedside Total CO2 27 24-31 mEq/l Bedside Blood Urea Nitrogen 59 7-18 mg/dl Bedside Creatinine 2.0 0.6-1.3 mg/dl Bedside Glucose (other) 316 70-99 mg/dl Bedside Ionized Calcium (Freddy) 1.32 1.12-1.32 mmol/l Urine Color YELLOW Urine Appearance SL CLOUDY CLEAR Urine pH 5.0 4.5-7.5 Urine Specific [place] 1.020 1.000-1.030 Urine Protein NEG NEG Urine Glucose (UA) 3+ NEG Urine Ketones NEG NEG Urine Occult Blood TRACE NEG Urine Nitrite NEG NEG Urine Bilirubin NEG NEG Urine Urobilinogen NEG NEG Urine Leukocyte Esterase NEG NEG Urine RBC 0-4 0-4 /hpf Urine WBC 10-30 0-5 /hpf Urine Epithelial Cells 20-30 0-5 /lpf Urine Bacteria 2+ NEG Test 05/06/16 00:25 05/06/16 00:28 05/06/16 04:15 05/06/16 06:45 Range/Units Bedside Glucose 390 338 350 70-90 mg/dl Sodium Level 156 158 136-145 mmol/L Potassium Level 4.0 3.8 3.5-5.1 mmol/L Chloride Level 117 119 98-107 mmol/L Carbon Dioxide Level 30 30 21-32 mmol/L Anion Gap 9.0 9.0 3-11 mmol/L Blood Urea Nitrogen 69 70 7-18 mg/dl Creatinine 2.10 2.20 0.60-1.20 mg/dl Est Creatinine Clear Calc Drug Dose 19.0 18.1 ml/min Estimated GFR () 25.0 23.6 Estimated GFR (Non- 21.5 20.4 BUN/Creatinine Ratio 32.6 31.8 10-20 Random Glucose 399 389 70-99 mg/dl Osmolality 365 280-300 mOsm/kg Lactic Acid Level 1.2 0.4-2.0 mmol/L Calcium Level 9.5 9.7 8.5-10.1 mg/dl Beta-Hydroxybutyric Acid 8.11 1.71 0.2-2.81 mg/dL White Blood Count 16.91 4.8-10.8 K/uL Red Blood Count 4.68 4.2-5.4 M/uL Hemoglobin 12.9 12.0-16.0 g/dL Hematocrit 39.8 37-47 % Mean Corpuscular Volume 85.0 80-100 fL Mean Corpuscular Hemoglobin 27.6 25-34 pg Mean Corpuscular Hemoglobin Concent 32.4 32-36 g/dl RDW Standard Deviation 44.8 36.4-46.3 fL RDW Coefficient of Variation 14.7 11.5-14.5 % Platelet Count 232 130-400 K/uL Mean Platelet Volume 10.6 7.4-10.4 fL Estimated Average Glucose 217 mg/dl Hemoglobin A1c 9.2 4.5-5.6 % Magnesium Level 2.7 1.8-2.4 mg/dl Test 05/06/16 06:47 05/06/16 08:15 05/06/16 09:25 05/06/16 11:14 Range/Units Bedside Glucose 378 345 299 70-90 mg/dl Sodium Level 156 136-145 mmol/L Potassium Level 3.8 3.5-5.1 mmol/L Chloride Level 118 98-107 mmol/L Carbon Dioxide Level 30 21-32 mmol/L Anion Gap 9.0 3-11 mmol/L Blood Urea Nitrogen 71 7-18 mg/dl Creatinine 1.90 0.60-1.20 mg/dl Est Creatinine Clear Calc Drug Dose 21.0 ml/min Estimated GFR () 28.2 Estimated GFR (Non- 24.3 BUN/Creatinine Ratio 37.4 10-20 Random Glucose 351 70-99 mg/dl Calcium Level 9.4 8.5-10.1 mg/dl Beta-Hydroxybutyric Acid 1.35 0.2-2.81 mg/dL Test 05/06/16 12:00 05/06/16 16:00 05/06/16 16:07 Range/Units Sodium Level 156 156 136-145 mmol/L Potassium Level 3.7 3.7 3.5-5.1 mmol/L Chloride Level 119 119 98-107 mmol/L Carbon Dioxide Level 29 30 21-32 mmol/L Anion Gap 8.0 7.0 3-11 mmol/L Blood Urea Nitrogen 71 70 7-18 mg/dl Creatinine 1.70 1.40 0.60-1.20 mg/dl Est Creatinine Clear Calc Drug Dose 23.5 28.5 ml/min Estimated GFR () 32.2 40.7 Estimated GFR (Non- 27.8 35.1 BUN/Creatinine Ratio 42.0 49.9 10-20 Random Glucose 313 254 70-99 mg/dl Calcium Level 9.4 9.0 8.5-10.1 mg/dl Beta-Hydroxybutyric Acid 1.16 0.2-2.81 mg/dL Bedside Glucose 223 70-90 mg/dl Microbiology Results 05/06/16 Blood Culture, Received Pending 05/06/16 Blood Culture, Received Pending 05/05/16 Urine Culture - Preliminary, Resulted Gram Negative Bacilli Gram Negative Bacilli#2
[2016-05-06 20:26] LABS: BUN/CREATININE RATIO 46.1 (10-20); CALCIUM 9.2 mg/dl (8.5-10.1); CREATININE 1.4 mg/dl (0.60-1.20); POTASSIUM 3.7 mmol/L (3.5-5.1)
[2016-05-06] MEDS ORDERED: SIMVASTATIN 10 MG TAB PO SCH (21:00)
[2016-05-06] MEDS ORDERED: GABAPENTIN 300 MG CAP PO SCH (21:00)
[2016-05-07] VITALS (7 sets, daily range): BP systolic 114–145; BP diastolic 64–72; PULSE 62–76; TEMP 36.3–36.5; O2SAT 93–100
[2016-05-07 01:01] LABS: BUN/CREATININE RATIO 50.1 (10-20); CALCIUM 8.6 mg/dl (8.5-10.1); CREATININE 1.2 mg/dl (0.60-1.20); POTASSIUM 3.5 mmol/L (3.5-5.1)
[2016-05-07] MEDS: PIPERACILL/TAZOBAC IV 3.375 GM in DEXTROSE 5% 100ML 100 ML IV SCH ×2 (02:09→10:15)
[2016-05-07] MEDS: SODIUM CHLORIDE 0.45% 1000ML 1,000 ML IV SCH ×3 (03:24→21:26)
[2016-05-07] MEDS: INSULIN ASPART 100 UNITS/ML 3 ML PEN SC SCH ×5 (04:22→21:51)
[2016-05-07 06:29] LABS: HEMATOCRIT 35.3 % (37-47); MEAN CELL VOLUME 85.5 fL (80-100); MEAN CORPUSCULAR HEMOGLOBIN 26.9 pg (25-34); MEAN CORPUSCULAR HGB CONC 31.4 g/dl (32-36); MEAN PLATELET VOLUME 10.1 fL (7.4-10.4); PLATELET COUNT 168 K/uL (130-400); RED BLOOD COUNT 4.13 M/uL (4.2-5.4); WHITE BLOOD COUNT 10.37 K/uL (4.8-10.8)
[2016-05-07 07:18] LABS: BUN/CREATININE RATIO 47.3 (10-20); CALCIUM 8.2 mg/dl (8.5-10.1); CREATININE 1.1 mg/dl (0.60-1.20); MAGNESIUM 2.1 mg/dl (1.8-2.4); POTASSIUM 3.5 mmol/L (3.5-5.1)
[2016-05-07] MEDS ORDERED: PIPERACILL/TAZOBAC CONSULT ACTIVE PRN (08:00)
[2016-05-07] MEDS: ARTIFICIAL TEARS OP SOLN OPB SCH ×8 (08:12→21:28)
[2016-05-07] MEDS: BACITRACIN OINT 15 GM TUBE EXT SCH ×2 (09:23→21:27)
[2016-05-07] MEDS: MENTHOL-ZINC OXIDE 360 APPLN/120 GM TUBE EXT SCH ×3 (09:23→21:27)
[2016-05-07 11:01] LABS: BUN/CREATININE RATIO 49.9 (10-20); CALCIUM 8.4 mg/dl (8.5-10.1); CREATININE 0.96 mg/dl (0.60-1.20); POTASSIUM 3.5 mmol/L (3.5-5.1)
--- NOTE | 2016-05-07 11:24 | NEPHROLOGY PROGRESS NOTE ---
DATE: 05/07/2016 DATE: 05/07/2016. SUBJECTIVE: The patient is an 80-year-old female with advanced Alzheimer dementia who presented with altered mental status, hypoglycemia, acute kidney injury and hypernatremia. At this point of time I cannot obtain any history as the patient is essentially nonverbal and not responsive at all. OBJECTIVE: VITAL SIGNS: Blood pressure is 121/67, 94% on room air, pulse rate 76 per minute, temperature 36.4. HEAD, EYES, EARS, NOSE, AND THROAT: Mucous membranes are moist. NECK: Supple. No jugular venous distention. CHEST: Bilateral decreased breath sounds, but very poor inspiratory effort. CARDIOVASCULAR: S1 and S2, regular. ABDOMEN: Soft, nontender. EXTREMITIES: Shows no edema. NEUROLOGIC: She is unresponsive and nonverbal. LABORATORY TESTS: From this morning shows hemoglobin 11.1, platelet count 168. Sodium is 154 from this morning, chloride 118, BUN 52, creatinine 1.1, random glucose 202, calcium 8.2. ASSESSMENT AND PLAN: 1. Acute kidney injury. It was prerenal in etiology with some contribution of ATN in the setting of negative urinary tract infection. Creatinine is down to baseline with IV fluid. 2. Hypernatremia. Serum sodium was 158, hyponatremia by definition is fluid deficit. 3. Alzheimer dementia. She is extremely susceptible to hypernatremia and usually signifies terminal dementia. Continue 1/2 NS at 100/ hr. She needs to be made hospice care as hypernatremia is a very terminal sign of Alzheimer dementia. MTDD
--- NOTE | 2016-05-07 12:58 | Pharmacy Progress Note ---
Glycemic: Assessment & Plan Date of Service May 07, 2016. Assessment & Plan Outpatient Anti-diabetic Regimen: * Levemir 10 units SQ QHS * Humalog 4 units SQ BID, with lunch and dinner * A1c = 9.2% (05/06/16) ASSESSMENT: 05/07/16: * Patient received 38 units of insulin yesterday. Patient is still hyperglycemic, but is improved from yesterday. * There has been some basal insulin deficit and while that is correcting, hesitate to be overly aggressive with adding additional basal insulin at this time. Patient is still NPO and is a non-verbal 80yo with Alzheimer's dementia. Tight glycemic control is likely not necessary and the risk of hypoglycemia should be minimized. 05/06/16 * Patient has been hyperglycemic since admission last evening. * Patient received 4 units of Lantus in the ED. * Levemir resumed this morning with a dose of 5 units, to help make up for the basal insulin deficiency from last night's reduced dose. Hope to be able to resume home dose this evening. * BSGs elevated pre-lunch, so will administer evening Levemir early today. * Recently, insulin doses adjusted as an outpatient d/t episodic hypoglycemia, so will adjust cautiously until hyperglycemia is resolved. * Patient has baseline mental status of Alzheimer's dementia, but admitted with decreased mental status/decreased alertness. NPO until alertness improves. * ADA & AACE recommend a goal blood sugar range 140-180 mg/dl for the majority of critically ill & non-critically ill patients. However, more stringent targets may be selected in individual cases. PLAN FOR INPATIENT GLYCEMIC CONTROL: * Continue Levemir 10 units SQ QHS * 1/2 dose only if BSG less than 110 mg/dL * Novolog for correctional/prandial coverage, accu-checks q4h until BSGs stable -- tighten parameters slightly * Correction factor: 30 mg/dl/unit * Carb ratio: 1 unit per 12 grams CHO consumed * Goal range: Low 110 mg/dL - High 160 mg/dL * Please note that the plan above was derived based on current level of insulin resistance and hospital stress. These recommendations are appropriate for inpatient admission only. Plan of care upon discharge will need to be reassessed to avoid potential outpatient hypo/hyperglycemia. Thank you.
[2016-05-07] MEDS: CEFTRIAXONE SOD INJ 1 GM in DEXTROSE 5% ADD-VANTAGE 50ML 50 ML IV SCH (14:03)
--- NOTE | 2016-05-07 14:09 | Progress Note ---
Progress Note ID Consult Dictated #[id number] A/P: 1. UTI - E. coli 2. Leukocytosis -resolved -Can continue ctx for now, when able to take po can change to keflex 500mg po bid to complete course -would continue abx until 05/09, then stop -Thank you
--- NOTE | 2016-05-07 19:15 | Progress Note ---
Internal Med Progress Note Date of Service: May 07, 2016. Provider Documentation: SUBJECTIVE: remains non verbal staring , able to track with eyes today not able to follow commands OBJECTIVE: Vital Signs-as noted below Exam: limited exam as pt unable to co-operate General-elderly female, not verbalizing, staring straight Eyes-sclera non icteric HEENT : dry oral mucosa, Neck-no thyromegaly detected Lungs-diminished Heart-regular Abdomen-soft, Extremities-no rash noted Neuro-advanced dementia , non verbal unable to follow command Lab data as noted below. ASSESSMENT & PLAN: METABOLIC ENCEPHALOPATHY worsening of mental status /metabolic encephalopathy due to electrolyte derangement , dehydration , infection Patient with underlying dementia; minimally verbal at baseline but currently nonverbal CT head- no acute findings NPO except for sip of water /ice chips -till pt is able to follow command , more oriented aspiration precaution baseline diet : pureed diet with honey thick fluids will ask for speech eval ACUTE HYPERNATREMIA Likely from dehydration Sodium is 158-> 156 -> .151 -gradual correction ( Goal is to decrease sodium not more than 8 points in 24 hours ) on IVF / NSS Nephrology consulted- appreciate input IVF rate adjusted follow PRP poor prognosis as per Nephrology 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, 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 No evidence of DKA Received 4 units glargine in ER insulin sliding scale coverage Consulted pharmacy for glycemic management appreciate input UTI: Urine cx -gram negative bacilli E.coli ESBL /MDR changed Abx to Rocephin per sensitivity ID consult appreciated Abx can be changed to PO keflex when able to take PO last day of ABx therapy 05/09/16 DERRICK /ATN resolved due to dehydration has CKD stage 3 Cr is 2.5 with baseline approximately 1.0 Continue IVF's renal function gradually improved ; Cr 0.9 Monitor renal function Avoid nephrotoxins when able Nephrology following DEPRESSION Hold citalopram until more alert NEUROPATHY Hold gabapentin until more alert DVT PROPHYLAXIS SCD's CODE STATUS DNR as documented in [facility] records on chart DISPOSITION return to [facility] when medically stable Vital Signs: Date Time Temp Pulse Resp B/P Pulse Ox O2 Delivery O2 Flow Rate FiO2 05/08/16 11:20 36.4 69 20 141/68 97 Room Air 05/08/16 08:12 36.8 66 16 129/64 92 12/29/16 08:10 Room Air 05/08/16 04:20 36.6 64 18 137/79 97 Room Air 05/08/16 04:00 Room Air 05/08/16 00:00 Room Air 05/07/16 23:50 36.5 67 18 126/72 96 Room Air 05/07/16 19:28 36.3 67 16 114/65 96 Room Air 05/07/16 19:15 Room Air 05/07/16 15:55 Room Air 05/07/16 15:43 36.3 62 16 145/70 93 Room Air 05/07/16 12:10 Room Air Lab Results: Results Past 24 Hours Test 05/07/16 16:04 05/07/16 19:42 05/07/16 19:59 05/08/16 00:15 Range/Units Bedside Glucose 258 196 208 70-90 mg/dl Sodium Level 148 136-145 mmol/L Potassium Level 3.5 3.5-5.1 mmol/L Chloride Level 113 98-107 mmol/L Carbon Dioxide Level 27 21-32 mmol/L Anion Gap 8.0 3-11 mmol/L Blood Urea Nitrogen 39 7-18 mg/dl Creatinine 0.82 0.60-1.20 mg/dl Est Creatinine Clear Calc Drug Dose 49.2 ml/min Estimated GFR () 77.8 Estimated GFR (Non- 67.1 BUN/Creatinine Ratio 47.4 10-20 Random Glucose 203 70-99 mg/dl Calcium Level 8.3 8.5-10.1 mg/dl Test 05/08/16 00:20 05/08/16 04:16 05/08/16 06:26 05/08/16 08:19 Range/Units Urine Osmolality 997 500-800 mOms/kg Urine Random Creatinine 110.0 mg/dl Urine Random Sodium 133 mEq/L Urine Random Potassium 29.8 mEq/L Bedside Glucose 151 117 70-90 mg/dl White Blood Count 6.94 4.8-10.8 K/uL Red Blood Count 4.15 4.2-5.4 M/uL Hemoglobin 11.1 12.0-16.0 g/dL Hematocrit 34.7 37-47 % Mean Corpuscular Volume 83.6 80-100 fL Mean Corpuscular Hemoglobin 26.7 25-34 pg Mean Corpuscular Hemoglobin Concent 32.0 32-36 g/dl RDW Standard Deviation 44.1 36.4-46.3 fL RDW Coefficient of Variation 14.4 11.5-14.5 % Platelet Count 174 130-400 K/uL Mean Platelet Volume 10.6 7.4-10.4 fL Sodium Level 147 136-145 mmol/L Potassium Level 3.4 3.5-5.1 mmol/L Chloride Level 113 98-107 mmol/L Carbon Dioxide Level 27 21-32 mmol/L Anion Gap 7.0 3-11 mmol/L Blood Urea Nitrogen 33 7-18 mg/dl Creatinine 0.77 0.60-1.20 mg/dl Est Creatinine Clear Calc Drug Dose 52.9 ml/min Estimated GFR () 83.9 Estimated GFR (Non- 72.4 BUN/Creatinine Ratio 42.5 10-20 Random Glucose 132 70-99 mg/dl Calcium Level 8.4 8.5-10.1 mg/dl Magnesium Level 2.0 1.8-2.4 mg/dl Test 05/08/16 11:30 Range/Units Bedside Glucose 123 70-90 mg/dl
--- NOTE | 2016-05-07 19:27 | INFECT. DISEASE CONSULTATION ---
DATE OF CONSULTATION: 05/07/2016 REQUESTING PHYSICIAN: Dr. Edgar. This is an 80-year-old female who has an underlying history of Alzheimer dementia who was admitted from her local skilled facility for hyperglycemia and change in mental status. On my examination today, the patient is unable to provide any history. She is nonverbal but appears to be resting comfortably in bed. She initially had blood sugars in the 400s and was admitted to the hospital. As part of her workup, urinalysis was obtained in the Emergency Room. She did have 10-30 WBCs with 2+ bacteria. Urine culture from the is growing 2 species of E. coli. Blood cultures are no growth to date. She initially had a white blood cell count as high as 22,000 that has improved to 10.3. She was initially placed on Zosyn and when her sensitivities for E. coli came back, she was started on Rocephin. She currently is on Rocephin and appears to be tolerating this well. Her creatinine was elevated as high as 2.5 on admission, but has improved to 0.9 today. She is being followed by nephrology as well. She did have a chest x-ray done in the Emergency Room which was unremarkable for acute findings. She also had a CAT scan of the head secondary to a change in mental status which again had no acute findings. I am unable to obtain any review of systems from the patient. She has been afebrile. Her leukocytosis has improved. Infectious diseases was consulted for urinary tract infection. PAST MEDICAL HISTORY: Gait disturbance, Alzheimer dementia, chronic kidney disease, type 2 diabetes, high cholesterol, incontinence and bilateral visual loss. PAST SURGICAL HISTORY: No pertinent surgical history known. FAMILY HISTORY: Noncontributory. SOCIAL HISTORY: Significant for a resident at a local skilled facility. ALLERGIES: She has no known drug allergies. CURRENT MEDICATIONS: Include ceftriaxone, insulin, eyedrops and Zofran. PHYSICAL EXAMINATION: VITAL SIGNS: She has been afebrile since admission. Pulse 62, respiratory rate is 19, blood pressure is 114/64, oxygen saturation is 96% on room air. GENERAL: She is awake but nonverbal. She appears comfortable. HEENT: Mucous membranes are moist. HEART: Regular. LUNGS: Clear. ABDOMEN: Soft and nondistended. EXTREMITIES: There is no edema. SKIN: Without rash. LABORATORY STUDIES: Chemistry panel reveals a sodium of 151, which is improving from as high as 159 on admission, potassium 3.5, chloride 116, bicarbonate 29, BUN 48, creatinine 0.96, glucose is 214. CBC reveals a white blood cell count of 10.3, hemoglobin 11.1, hematocrit 35.3 and platelets are 168. UA is as reviewed previously. A urine culture from the grew 2 species of E. coli. The 1st is resistant to ampicillin and sulbactam, Cipro, gentamicin, Levaquin and Bactrim. The second isolate is resistant to ampicillin, Cipro, Levaquin, Bactrim and intermediate to Augmentin. Blood cultures are no growth to date x2 sets. Imaging is as reviewed previously. ASSESSMENT AND PLAN: 1. Urinary tract infection with E. coli. Certainly she could be narrowed to oral antibiotics. My preference would be to place the patient on Keflex. Her renal function has improved significantly. It is unclear to me if she is able to take p.o. medications. If that is the case she can continue a course of Rocephin if IV medications are needed secondary to her altered mental status. She has been on antibiotics since the . She will need antibiotics through the ; after her dose on the it can be discontinued. She can remain on Rocephin at this time. If she is able to be transitioned to oral antibiotics recommendation will be twice daily Keflex to complete her course. No new ID recommendations at this time. Thank you for this consultation.
[2016-05-07 20:20] LABS: BUN/CREATININE RATIO 47.4 (10-20); CALCIUM 8.3 mg/dl (8.5-10.1); CREATININE 0.82 mg/dl (0.60-1.20); POTASSIUM 3.5 mmol/L (3.5-5.1)
[2016-05-07] MEDS: INSULIN DETEMIR FLEXPEN/FLEX TOUCH 100 UNITS/ML 3ML SC SCH (21:52)
[2016-05-08] VITALS (8 sets, daily range): BP systolic 128–143; BP diastolic 64–79; PULSE 62–78; TEMP 36.2–36.8; O2SAT 92–97
[2016-05-08] MEDS: INSULIN ASPART 100 UNITS/ML 3 ML PEN SC SCH ×5 (00:18→17:28)
[2016-05-08 06:56] LABS: HEMATOCRIT 34.7 % (37-47); MEAN CELL VOLUME 83.6 fL (80-100); MEAN CORPUSCULAR HEMOGLOBIN 26.7 pg (25-34); MEAN PLATELET VOLUME 10.6 fL (7.4-10.4); PLATELET COUNT 174 K/uL (130-400); RED BLOOD COUNT 4.15 M/uL (4.2-5.4); WHITE BLOOD COUNT 6.94 K/uL (4.8-10.8)
[2016-05-08 07:21] LABS: BUN/CREATININE RATIO 42.5 (10-20); CALCIUM 8.4 mg/dl (8.5-10.1); CREATININE 0.77 mg/dl (0.60-1.20); POTASSIUM 3.4 mmol/L (3.5-5.1)
[2016-05-08] MEDS: MENTHOL-ZINC OXIDE 360 APPLN/120 GM TUBE EXT SCH ×3 (07:54→21:19)
[2016-05-08] MEDS: BACITRACIN OINT 15 GM TUBE EXT SCH ×2 (07:54→21:18)
[2016-05-08] MEDS: ARTIFICIAL TEARS OP SOLN OPB SCH ×8 (07:54→21:19)
[2016-05-08] MEDS: SODIUM CHLORIDE 0.45% 1000ML 1,000 ML IV SCH ×2 (07:54→17:28)
--- NOTE | 2016-05-08 09:35 | Pharmacy Progress Note ---
Glycemic: Assessment & Plan Date of Service May 08, 2016. Assessment & Plan Outpatient Anti-diabetic Regimen: * Levemir 10 units SQ QHS * Humalog 4 units SQ BID, with lunch and dinner * A1c = 9.2% (05/06/16) ASSESSMENT: 05/08/16: * Patient received 22 units of insulin yesterday with BSGs ranging from 184 - 258 mg/dL. * Despite some hyperglycemia throughout the day, fasting BSGs have improved significantly over the past few days (345 -> 187 -> 117 this morning). * Will tighten correctional insulin for now for better control during the day, and may consider lowering dose of Lantus this evening. * Patient is still NPO and is a non-verbal 80yo with Alzheimer's dementia. Tight glycemic control is likely not necessary and the risk of hypoglycemia should be minimized. * Goal is to move to q6h accu-checks rather than q4h for patient comfort, as soon as BSGs are more reasonable throughout the day. 05/07/16 * Patient received 38 units of insulin yesterday. Patient is still hyperglycemic, but is improved from yesterday. * There has been some basal insulin deficit and while that is correcting, hesitate to be overly aggressive with adding additional basal insulin at this time. 05/06/16 * Patient has been hyperglycemic since admission last evening. * Patient received 4 units of Lantus in the ED. * Levemir resumed this morning with a dose of 5 units, to help make up for the basal insulin deficiency from last night's reduced dose. Hope to be able to resume home dose this evening. * BSGs elevated pre-lunch, so will administer evening Levemir early today. * Recently, insulin doses adjusted as an outpatient d/t episodic hypoglycemia, so will adjust cautiously until hyperglycemia is resolved. * Patient has baseline mental status of Alzheimer's dementia, but admitted with decreased mental status/decreased alertness. NPO until alertness improves. * ADA & AACE recommend a goal blood sugar range 140-180 mg/dl for the majority of critically ill & non-critically ill patients. However, more stringent targets may be selected in individual cases. PLAN FOR INPATIENT GLYCEMIC CONTROL: * Continue Levemir SQ QHS * For HS BSG > 180mg/dL: give 10 units * For HS BSG 120-180mg/dL: give 8 units * For HS BSG < 120mg/dL: give 5 units * Novolog for correctional/prandial coverage, accu-checks q4h until BSGs stable -- tighten parameters slightly * Correction factor: tighten to 25 mg/dl/unit * Carb ratio: 1 unit per 12 grams CHO consumed * Goal range: Low 110 mg/dL - High 160 mg/dL * Please note that the plan above was derived based on current level of insulin resistance and hospital stress. These recommendations are appropriate for inpatient admission only. Plan of care upon discharge will need to be reassessed to avoid potential outpatient hypo/hyperglycemia. Thank you.
--- NOTE | 2016-05-08 11:54 | Progress Note ---
Progress Note ATTENDING NOTE : am LAB REVIEWED : NA level improved 148-> 147 with mild hypokalemia , Mg level remains wnl renal function to baseline decrease IVF to 80 ml/hr repeat BMP in AM ordered for K replacement speech eval requested before ordering for diet -high risk for aspiration - dementia /worsening of mental status due to electrolyte derangement previous diet was -Purred with [place] thick stable to be transferred to Medical floor
--- NOTE | 2016-05-08 12:23 | NEPHROLOGY PROGRESS NOTE ---
DATE: 05/08/2016 The patient is an 80-year-old female with advanced Alzheimer dementia who presented with altered mental status, hypoglycemia, acute kidney injury and hypernatremia. At this point of time, I cannot obtain any history as the patient is essentially nonverbal and not responsive at all. PHYSICAL EXAMINATION: VITAL SIGNS: Blood pressure 141/68, 97% on room air, pulse rate 69 per minute, temperature 36.4. HEENT: Mucous membranes moist. NECK: Supple. No jugular venous distention. CHEST: Bilateral decreased breath sounds, but very poor inspiratory effort. CARDIOVASCULAR: S1 and S2, regular. No murmur, rub or gallop. ABDOMEN: Soft, nontender. EXTREMITIES: Shows no edema. NEUROLOGIC: She is unresponsive and nonverbal. LABORATORY TESTS: From this morning, shows hemoglobin 11.1, WBC count 6.9, platelet count 10.6. Sodium 147, potassium 3.4, BUN 33, creatinine 0.7, calcium 8.4. ASSESSMENT AND PLAN: 1. Acute kidney injury. It was prerenal in etiology with some contribution of acute tubular necrosis in the setting of gram negative urinary tract infection. Creatinine is down to baseline with IV fluid. 2. Hypernatremia. Serum sodium is now dropping nicely. This morning, sodium is down to 147, which is getting closer to normal. I would continue with the half normal saline at 100 mL per hour to bring the serum sodium down. The rate of correction of serum sodium has been appropriate. 3. Alzheimer's dementia. Such patients are extremely susceptible to hypernatremia and usually signify terminal dementia. Consider making her hospice care. NIRMAL
[2016-05-08] MEDS: CEFTRIAXONE SOD INJ 1 GM in DEXTROSE 5% ADD-VANTAGE 50ML 50 ML IV SCH (14:37)
[2016-05-08] MEDS: POTASSIUM CHLR 10 MEQ / WTR 10 MEQ in PREMIXED WATER 100 ML IV SCH ×2 (15:31→17:27)
[2016-05-08] MEDS: INSULIN DETEMIR FLEXPEN/FLEX TOUCH 100 UNITS/ML 3ML SC SCH (21:14)
--- NOTE | 2016-05-08 23:01 | Progress Note ---
Internal Med Progress Note Date of Service: May 08, 2016. Provider Documentation: SUBJECTIVE: able to verbalize today says " wants to eat " was evaluated by speech pathology -pt was unable to have pureed , luis fernando aspiration noted not safe for PO intake spoke with pt's grand daughter Cindi Bauman ( POA ) -updated regarding severe dysphagia -limited option available given advance dementia , worsening of mental status due to severe hypernatremia for continued nutrition -PEG tube will be a poor option -high risk for aspiration , poor quality of life other option is hospice /palliative care /allow permissive feeding with known risk of aspiration Grand daughter will speak with her other family members and update pt's over all prognosis remains poor OBJECTIVE: Vital Signs-as noted below Exam: limited exam as pt unable to co-operate General-elderly female, able to speak minimum words Eyes-sclera non icteric HEENT : oral mucosa moist, does not have any teeth , no denture Neck-no thyromegaly detected Lungs-diminished Heart-regular Abdomen-soft, Extremities-no rash noted Neuro-advanced dementia , Lab data as noted below. ASSESSMENT & PLAN: METABOLIC ENCEPHALOPATHY worsening of mental status /metabolic encephalopathy due to electrolyte derangement , dehydration , infection Patient with underlying dementia; minimally verbal at baseline but currently nonverbal CT head- no acute findings NPO except for sip of water /ice chips -till pt is able to follow command , more oriented aspiration precaution baseline diet : pureed diet with honey thick fluids speech eval appreciated - pt shows luis fernando aspiration with purred diet poor prognosis family updated Hospice /palliative care will be appropriate ACUTE HYPERNATREMIA Likely from dehydration Sodium is 158-> 156 -> .151 -> 147 -gradual correction ( Goal is to decrease sodium not more than 8 points in 24 hours ) on IVF 1/2 NSS Nephrology consulted- appreciate input IVF rate adjusted follow PRP poor prognosis as per Nephrology HYPERGLYCEMIA BSG improved presented with BSG's >600 [employer], 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 No evidence of DKA on insulin sliding scale coverage Consulted pharmacy for glycemic management appreciate input UTI: Urine cx -gram negative bacilli E.coli ESBL /MDR changed Abx to Rocephin per sensitivity ID consult appreciated last day of ABx therapy 05/09/16 unable to take PO DERRICK /ATN resolved due to dehydration has CKD stage 3 Cr is 2.5 with baseline approximately 1.0 Continue IVF's renal function gradually improved ; Cr 0.9 Monitor renal function Avoid nephrotoxins when able Nephrology following DVT PROPHYLAXIS SCD's CODE STATUS DNR DISPOSITION resident at [facility] given severe dysphagia , unable to take PO , poor candidate for PEG /high risk for dehydration hospice /palliative care would be appropriate Vital Signs: Date Time Temp Pulse Resp B/P Pulse Ox O2 Delivery O2 Flow Rate FiO2 05/08/16 19:15 96 Room Air 05/08/16 16:55 36.2 62 20 128/66 96 Room Air 05/08/16 16:15 Room Air 05/08/16 12:49 36.5 67 20 143/72 94 Room Air 05/08/16 12:24 36.4 69 20 97 1.0 05/08/16 12:15 Room Air 05/08/16 11:20 36.4 69 20 141/68 97 Room Air 05/08/16 08:12 36.8 66 16 129/64 92 05/08/16 08:10 Room Air 05/08/16 04:20 36.6 64 18 137/79 97 Room Air 05/08/16 04:00 Room Air 05/08/16 00:00 Room Air 05/07/16 23:50 36.5 67 18 126/72 96 Room Air Lab Results: Results Past 24 Hours Test 05/08/16 00:15 05/08/16 00:20 05/08/16 04:16 05/08/16 06:26 Range/Units Bedside Glucose 208 151 70-90 mg/dl Urine Osmolality 997 500-800 mOms/kg Urine Random Creatinine 110.0 mg/dl Urine Random Sodium 133 mEq/L Urine Random Potassium 29.8 mEq/L White Blood Count 6.94 4.8-10.8 K/uL Red Blood Count 4.15 4.2-5.4 M/uL Hemoglobin 11.1 12.0-16.0 g/dL Hematocrit 34.7 37-47 % Mean Corpuscular Volume 83.6 80-100 fL Mean Corpuscular Hemoglobin 26.7 25-34 pg Mean Corpuscular Hemoglobin Concent 32.0 32-36 g/dl RDW Standard Deviation 44.1 36.4-46.3 fL RDW Coefficient of Variation 14.4 11.5-14.5 % Platelet Count 174 130-400 K/uL Mean Platelet Volume 10.6 7.4-10.4 fL Sodium Level 147 136-145 mmol/L Potassium Level 3.4 3.5-5.1 mmol/L Chloride Level 113 98-107 mmol/L Carbon Dioxide Level 27 21-32 mmol/L Anion Gap 7.0 3-11 mmol/L Blood Urea Nitrogen 33 7-18 mg/dl Creatinine 0.77 0.60-1.20 mg/dl Est Creatinine Clear Calc Drug Dose 52.9 ml/min Estimated GFR () 83.9 Estimated GFR (Non- 72.4 BUN/Creatinine Ratio 42.5 10-20 Random Glucose 132 70-99 mg/dl Calcium Level 8.4 8.5-10.1 mg/dl Magnesium Level 2.0 1.8-2.4 mg/dl Test 05/08/16 08:19 05/08/16 11:30 05/08/16 16:29 05/08/16 20:21 Range/Units Bedside Glucose 117 123 139 151 70-90 mg/dl
[2016-05-09 00:24] VITALS: O2SAT 96
[2016-05-09] MEDS: SODIUM CHLORIDE 0.45% 1000ML 1,000 ML IV SCH ×2 (04:52→22:18)
[2016-05-09] MEDS: INSULIN ASPART 100 UNITS/ML 3 ML PEN SC SCH ×4 (06:00→19:36)
[2016-05-09 07:09] LABS: HEMATOCRIT 35.5 % (37-47); MEAN CELL VOLUME 80.9 fL (80-100); MEAN CORPUSCULAR HEMOGLOBIN 27.3 pg (25-34); MEAN CORPUSCULAR HGB CONC 33.8 g/dl (32-36); MEAN PLATELET VOLUME 10.5 fL (7.4-10.4); PLATELET COUNT 163 K/uL (130-400); RED BLOOD COUNT 4.39 M/uL (4.2-5.4); WHITE BLOOD COUNT 5.92 K/uL (4.8-10.8)
[2016-05-09] MEDS: BACITRACIN OINT 15 GM TUBE EXT SCH ×2 (07:43→21:41)
[2016-05-09] MEDS: MENTHOL-ZINC OXIDE 360 APPLN/120 GM TUBE EXT SCH ×3 (07:43→21:42)
[2016-05-09 07:44] LABS: BUN/CREATININE RATIO 36.3 (10-20); CALCIUM 8.3 mg/dl (8.5-10.1); CREATININE 0.57 mg/dl (0.60-1.20); MAGNESIUM 1.7 mg/dl (1.8-2.4); POTASSIUM 3.4 mmol/L (3.5-5.1)
[2016-05-09] MEDS: ARTIFICIAL TEARS OP SOLN OPB SCH ×8 (07:44→21:42)
[2016-05-09] MEDS: KETOCONAZOLE EXT SCH (07:44)
[2016-05-09 07:50] VITALS: O2SAT 96
[2016-05-09 08:25] VITALS: BP 119/75; PULSE 71; TEMP 36.3; O2SAT 97
--- NOTE | 2016-05-09 09:47 | Pharmacy Progress Note ---
Glycemic: Assessment & Plan Date of Service May 09, 2016. Assessment & Plan Outpatient Anti-diabetic Regimen: * Levemir 10 units SQ QHS * Humalog 4 units SQ BID, with lunch and dinner * A1c = 9.2% (05/06/16) ASSESSMENT: 05/09/16: * Patient received only 8 units of insulin yesterday, with BSGs ranging from 117 - 157 mg/dL. * Expect that true basal insulin needs are 8-10 units daily. Will continue to utilize a sort of "sliding scale" for Levemir dosing for now. Novolog is still available for correction if needed. * Patient is still NPO and is a non-verbal 80yo with Alzheimer's dementia. Tight glycemic control is likely not necessary and the risk of hypoglycemia should be minimized. 05/08/16 * Patient received 22 units of insulin yesterday with BSGs ranging from 184 - 258 mg/dL. * Despite some hyperglycemia throughout the day, fasting BSGs have improved significantly over the past few days (345 -> 187 -> 117 this morning). * Will tighten correctional insulin for now for better control during the day, and may consider lowering dose of Lantus this evening. * Goal is to move to q6h accu-checks rather than q4h for patient comfort, as soon as BSGs are more reasonable throughout the day. 05/07/16 * Patient received 38 units of insulin yesterday. Patient is still hyperglycemic, but is improved from yesterday. * There has been some basal insulin deficit and while that is correcting, hesitate to be overly aggressive with adding additional basal insulin at this time. 05/06/16 * Recently, insulin doses adjusted as an outpatient d/t episodic hypoglycemia, so will adjust cautiously until hyperglycemia is resolved. * Patient has baseline mental status of Alzheimer's dementia, but admitted with decreased mental status/decreased alertness. NPO until alertness improves. * ADA & AACE recommend a goal blood sugar range 140-180 mg/dl for the majority of critically ill & non-critically ill patients. However, more stringent targets may be selected in individual cases. PLAN FOR INPATIENT GLYCEMIC CONTROL: * Continue Levemir SQ QHS * For HS BSG > 180 mg/dL: give 10 units * For HS BSG 140-180 mg/dL: give 8 units * For HS BSG < 140 mg/dL: give 5 units * Novolog for correctional/prandial coverage, accu-checks q6h while NPO * Correction factor: tighten to 25 mg/dl/unit * Carb ratio: 1 unit per 12 grams CHO consumed -- when diet is resumed * Goal range: Low 110 mg/dL - High 160 mg/dL * Please note that the plan above was derived based on current level of insulin resistance and hospital stress. These recommendations are appropriate for inpatient admission only. Plan of care upon discharge will need to be reassessed to avoid potential outpatient hypo/hyperglycemia. Thank you.
[2016-05-09] MEDS ORDERED: SOD PHOSPHATE/SOD BIPHOSPHATE ENEMA 132 ML BTL PR PRN (11:45)
[2016-05-09] MEDS ORDERED: BISACODYL 10 MG SUPP PR ONE (12:15)
[2016-05-09] MEDS: POTASSIUM CHLR 10 MEQ / WTR 10 MEQ in PREMIXED WATER 100 ML IV SCH ×2 (12:40→13:43)
[2016-05-09] MEDS ORDERED: MAGNESIUM SULFATE 1GM / D5W 1 GM in PREMIXED IN D5W 100 ML IV ONE (13:00)
[2016-05-09 15:35] VITALS: BP 136/76; PULSE 73; TEMP 36.4; O2SAT 96
[2016-05-09 16:00] VITALS: O2SAT 96
[2016-05-09] MEDS: CEFTRIAXONE SOD INJ 1 GM in DEXTROSE 5% ADD-VANTAGE 50ML 50 ML IV SCH (17:30)
--- NOTE | 2016-05-09 17:44 | Progress Note ---
Progress Note ATTENDING NOTE : received call from daughter and grand daughter Had conference call with Pt's 2 daughters ( all out of town ) and grand daughter Daughters are concern regarding making decision too early for hospice comfort care as pt is being found to be more awake and responsive -wants to allow pt for some recovery time and repeat Speech eval later part of the or Thursday family members updated regarding Speech eval - pt was able to communicate but showed overt sign if aspiration with Pureed food challenge/Chocolate pudding and also the poor prognosis and poor recovery following severe dehydration / severe Hypernatremia Family does 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
[2016-05-09] MEDS: INSULIN DETEMIR FLEXPEN/FLEX TOUCH 100 UNITS/ML 3ML SC SCH (21:47)
[2016-05-10] MEDS: INSULIN ASPART 100 UNITS/ML 3 ML PEN SC SCH ×5 (00:18→23:54)
[2016-05-10 00:22] VITALS: BP 144/78; PULSE 78; TEMP 36.2; O2SAT 95
[2016-05-10 07:30] VITALS: BP 140/81; PULSE 70; TEMP 36.3; O2SAT 95
[2016-05-10] MEDS: BACITRACIN OINT 15 GM TUBE EXT SCH ×2 (08:05→20:33)
[2016-05-10] MEDS: MENTHOL-ZINC OXIDE 360 APPLN/120 GM TUBE EXT SCH ×3 (08:06→20:32)
[2016-05-10] MEDS: ARTIFICIAL TEARS OP SOLN OPB SCH ×8 (08:06→20:33)
[2016-05-10 09:03] LABS: BUN/CREATININE RATIO 29.1 (10-20); CALCIUM 8.3 mg/dl (8.5-10.1); CREATININE 0.58 mg/dl (0.60-1.20); MAGNESIUM 1.9 mg/dl (1.8-2.4); POTASSIUM 3.6 mmol/L (3.5-5.1)
[2016-05-10] MEDS: CEFTRIAXONE SOD INJ 1 GM in DEXTROSE 5% ADD-VANTAGE 50ML 50 ML IV SCH (13:32)
[2016-05-10 15:23] VITALS: BP 127/70; PULSE 81; TEMP 36.3; O2SAT 98
[2016-05-10 15:41] VITALS: O2SAT 98
--- NOTE | 2016-05-10 18:33 | Progress Note ---
Internal Med Progress Note Date of Service: May 10, 2016. Provider Documentation: SUBJECTIVE: pt's over all prognosis remains poor severe dementia , progression of dysphagia trial of sips of water on wet sponge offered to pt -as she mentioned of being thirsty pt started to show s/s of aspiration with 2-3 attempt of sucking wet sponge , spoke with Grand Daughter Cindi -she will come and visit pt sometime tomorrow Cindi updated her mother and Aunts are not interested in Feeding tube family already looking into hospice care wants to make final decision for transition on Thursday OBJECTIVE: Vital Signs-as noted below Exam: limited exam as pt unable to co-operate General-elderly female, able to speak minimum words Eyes-sclera non icteric HEENT : oral mucosa moist, does not have any teeth , no denture Neck-no thyromegaly detected Lungs-diminished Heart-regular Abdomen-soft, Extremities-no rash noted Neuro-advanced dementia , Lab data as noted below. ASSESSMENT & PLAN: METABOLIC ENCEPHALOPATHY worsening of mental status /metabolic encephalopathy due to electrolyte derangement , dehydration , infection Patient with underlying dementia; minimally verbal at baseline but currently nonverbal CT head- no acute findings NPO except for sip of water /ice chips -till pt is able to follow command , more oriented aspiration precaution baseline diet : pureed diet with honey thick fluids speech eval appreciated - pt shows luis fernando aspiration with purred diet poor prognosis family updated Hospice /palliative care will be appropriate SEVERE DYSPHAGIA : unable to swallow Pureed , sips of water very poor prognosis Family does not want feeding tube Hospice /Palliative care would be appropriate ACUTE HYPERNATREMIA Likely from dehydration resolved Nephrology consulted- appreciate input poor prognosis HYPERGLYCEMIA BSG improved presented with BSG's >600 [employer], 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 No evidence of DKA on insulin sliding scale coverage Consulted pharmacy for glycemic management appreciate input UTI: Urine cx -gram negative bacilli E.coli ESBL /MDR changed Abx to Rocephin per sensitivity ID consult appreciated last day of ABx therapy 05/09/16 IV Rocephin D.amarjit DERRICK /ATN resolved due to dehydration has CKD stage 3 Cr is 2.5 with baseline approximately 1.0 Continue IVF's renal function gradually improved ; Cr 0.9 Monitor renal function Avoid nephrotoxins when able Nephrology following DVT PROPHYLAXIS SCD's CODE STATUS DNR DISPOSITION resident at [facility] given severe dysphagia , unable to take PO , poor candidate for PEG /high risk for dehydration hospice /palliative care would be appropriate grand daughter update over phone Vital Signs: Date Time Temp Pulse Resp B/P Pulse Ox O2 Delivery O2 Flow Rate FiO2 05/10/16 15:41 98 Room Air 05/10/16 15:23 36.3 81 16 127/70 98 Room Air 05/10/16 08:00 Room Air 05/10/16 07:30 36.3 70 16 140/81 95 Room Air 05/10/16 00:22 36.2 78 18 144/78 95 Room Air 05/10/16 00:00 Room Air Lab Results: Results Past 24 Hours Test 05/09/16 21:44 05/10/16 00:02 05/10/16 06:06 05/10/16 07:48 Range/Units Bedside Glucose 221 184 200 70-90 mg/dl Sodium Level 138 136-145 mmol/L Potassium Level 3.6 3.5-5.1 mmol/L Chloride Level 105 98-107 mmol/L Carbon Dioxide Level 22 21-32 mmol/L Anion Gap 11.0 3-11 mmol/L Blood Urea Nitrogen 17 7-18 mg/dl Creatinine 0.58 0.60-1.20 mg/dl Est Creatinine Clear Calc Drug Dose 71.5 ml/min Estimated GFR () 100.2 Estimated GFR (Non- 86.4 BUN/Creatinine Ratio 29.1 10-20 Random Glucose 182 70-99 mg/dl Calcium Level 8.3 8.5-10.1 mg/dl Magnesium Level 1.9 1.8-2.4 mg/dl Test 05/10/16 11:44 05/10/16 17:51 Range/Units Bedside Glucose 186 185 70-90 mg/dl
[2016-05-10] MEDS: INSULIN DETEMIR FLEXPEN/FLEX TOUCH 100 UNITS/ML 3ML SC SCH (20:35)
[2016-05-10 23:32] VITALS: BP 144/76; PULSE 84; TEMP 36.4; O2SAT 96
[2016-05-11] MEDS: INSULIN ASPART 100 UNITS/ML 3 ML PEN SC SCH ×3 (05:58→18:00)
[2016-05-11] MEDS: SODIUM CHLORIDE 0.45% 1000ML 1,000 ML IV SCH (06:17)
[2016-05-11 08:02] VITALS: BP 114/58; PULSE 75; TEMP 36.2; O2SAT 97
[2016-05-11] MEDS: MENTHOL-ZINC OXIDE 360 APPLN/120 GM TUBE EXT SCH ×3 (10:10→22:00)
[2016-05-11] MEDS: ARTIFICIAL TEARS OP SOLN OPB SCH ×8 (10:10→22:00)
[2016-05-11] MEDS: BACITRACIN OINT 15 GM TUBE EXT SCH ×2 (10:11→22:03)
--- NOTE | 2016-05-11 14:00 | Pharmacy Progress Note ---
Glycemic: Assessment & Plan Date of Service May 11, 2016. Assessment & Plan Item Value Date Time Bedside Glucose 77 mg/dl 05/11/16 1137 Bedside Glucose 77 mg/dl 05/11/16 0557 Bedside Glucose 164 mg/dl H 05/10/16 2349 Bedside Glucose 184 mg/dl H 05/10/16 2028 Bedside Glucose 185 mg/dl H 05/10/16 1751 Bedside Glucose 186 mg/dl H 05/10/16 1144 Random Glucose 182 mg/dl H 05/10/16 0748 Bedside Glucose 200 mg/dl H 05/10/16 0606 Bedside Glucose 184 mg/dl H 05/10/16 0002 05/06/16: The patient received 38 units of insulin. 05/07/16: The patient received 22 units of insulin. 05/08/16: The patient received 8 units of insulin. 05/09/16: The patient received 12 units of insulin. 05/10/16: The patient received 16 units of insulin. PLAN: AM and noon BSG = 77mg/dL. Will loosen ordered Novolog CF/CR as well as put Lantus on hold and follow BSGs thru the day. * Basal insulin: Was a sliding scale dose * Lantus 10 units QHS for BSG > 180mg/dL * Lantus 8 units QHS for BSG 140-180mg/dL * Lantus 5 units QHS for BSG < 140mg/dL * For tonite only...Restart Lantus 8 units sub-q QHS if BSG >200mg/dL, 4 units if BSG 151-200mg/dL, Hold for BSG < 150. * Correctional Insulin: Novolog Correction per scale q 6 hours Goal Range: Low 110 mg/dL - High 160 mg/dL "Loosened" Correction Factor: 25 mg/dL/unit * Prandial insulin: "Loosened" carb ratio of 1 unit per 20 grams CHO consumed Pharmacy will continue to monitor patient daily and write orders per [facility] inpatient glycemic control protocol. Thanks. * Please note that the plan above was derived based on current level of insulin resistance and hospital stress. These recommendations are appropriate for inpatient admission only. Plan of care upon discharge will need to be reassessed to avoid potential outpatient hypo/hyperglycemia.
[2016-05-11 16:05] VITALS: BP 115/67; PULSE 72; TEMP 35.7; O2SAT 97
[2016-05-11] MEDS ORDERED: INSULIN DETEMIR FLEXPEN/FLEX TOUCH 100 UNITS/ML 3ML SC SCH (21:00)
--- NOTE | 2016-05-11 21:45 | Progress Note ---
Internal Med Progress Note Date of Service: May 11, 2016. Provider Documentation: SUBJECTIVE: pt's over all prognosis remains poor severe dementia , progression of dysphagia trial of sips of water on wet sponge offered to pt -as she mentioned of being thirsty pt started to show s/s of aspiration with 2-3 attempt of sucking wet sponge , spoke with Grand Daughter Cindi -she will come and visit pt sometime tomorrow Cindi updated her mother and Aunts are not interested in Feeding tube family already looking into hospice care wants to make final decision for transition on Thursday OBJECTIVE: Vital Signs-as noted below Exam: limited exam as pt unable to co-operate General-elderly female, able to speak minimum words Eyes-sclera non icteric HEENT : oral mucosa moist, does not have any teeth , no denture Neck-no thyromegaly detected Lungs-diminished Heart-regular Abdomen-soft, Extremities-no rash noted Neuro-advanced dementia , Lab data as noted below. ASSESSMENT & PLAN: METABOLIC ENCEPHALOPATHY worsening of mental status /metabolic encephalopathy due to electrolyte derangement , dehydration , infection Patient with underlying dementia; minimally verbal at baseline but currently nonverbal CT head- no acute findings NPO except for sip of water /ice chips -till pt is able to follow command , more oriented aspiration precaution baseline diet : pureed diet with honey thick fluids speech eval appreciated - pt shows luis fernando aspiration with purred diet poor prognosis family updated Hospice /palliative care will be appropriate SEVERE DYSPHAGIA : unable to swallow Pureed , sips of water very poor prognosis Family does not want feeding tube Hospice /Palliative care would be appropriate ACUTE HYPERNATREMIA Likely from dehydration resolved Nephrology consulted- appreciate input poor prognosis HYPOGLYCEMIA presented with hyperglycemia was on insulin [facility] has been following for glycemia control developing progressive hypoglycemia due to NPO status ' changed IVF to D5NSS @ 50 ml follow BSG ; will D/C insulin poor prognosis waiting for family visit and recommendation for further care/nutrition UTI: Urine cx -gram negative bacilli E.coli ESBL /MDR changed Abx to Rocephin per sensitivity ID consult appreciated lcompleted ast day of ABx therapy 05/09/16 IV Rocephin D.amarjit DERRICK /ATN resolved wuth IV hydration due to dehydration has CKD stage 3 presented with Cr 2.5 with baseline approximately 1.0 renal function gradually improved ; Cr 0.9 Nephrology following DVT PROPHYLAXIS SCD's CODE STATUS DNR DISPOSITION resident at [facility] given severe dysphagia , unable to take PO , poor candidate for PEG /high risk for dehydration hospice /palliative care would be appropriate family updated by myself multiple time does not want Feeding time , but not decisive regarding hospice waiting for family members to make decision regarding further care for the pt Vital Signs: Date Time Temp Pulse Resp B/P Pulse Ox O2 Delivery O2 Flow Rate FiO2 05/11/16 16:05 35.7 72 16 115/67 97 Room Air 05/11/16 16:00 Room Air 05/11/16 10:00 Room Air 05/11/16 08:02 36.2 75 18 114/58 97 Room Air 05/11/16 00:00 Room Air 05/10/16 23:32 36.4 84 18 144/76 96 Room Air Lab Results: Results Past 24 Hours Test 05/10/16 23:49 05/11/16 05:57 05/11/16 11:37 05/11/16 18:05 Range/Units Bedside Glucose 164 77 77 83 70-90 mg/dl
[2016-05-11] MEDS: D5W AND NSS 1,000 ML IV SCH (22:02)
[2016-05-11 23:31] VITALS: BP 111/67; PULSE 84; TEMP 36.4; O2SAT 99
--- NOTE | 2016-05-12 07:26 | Pharmacy Progress Note ---
Glycemic: Assessment & Plan Date of Service May 12, 2016. Assessment & Plan * BSGs ranging 77 - 174 mg/dl over the past 24hrs. * Pt remains NPO. Now receiving D5NS at 50 ml/hr. * Hospitalist discontinued insulin therapy on 05/11/16 at (Levemir and Novolog) . * Pharmacy will sign-off. If warranted please re-consult pharmacy so we may continue to monitor patient daily and write orders per [facility] inpatient glycemic control protocol. Thank you. * Please note that the plan above was derived based on current level of insulin resistance and hospital stress. These recommendations are appropriate for inpatient admission only. Plan of care upon discharge will need to be reassessed to avoid potential outpatient hypo/hyperglycemia.
[2016-05-12 08:48] VITALS: BP 105/68; PULSE 79; TEMP 36.3; O2SAT 97
[2016-05-12] MEDS: ARTIFICIAL TEARS OP SOLN OPB SCH ×8 (09:29→21:49)
[2016-05-12] MEDS: MENTHOL-ZINC OXIDE 360 APPLN/120 GM TUBE EXT SCH ×3 (09:29→21:49)
[2016-05-12] MEDS: BACITRACIN OINT 15 GM TUBE EXT SCH ×2 (09:29→21:49)
--- NOTE | 2016-05-12 14:52 | Progress Note ---
Internal Med Progress Note Date of Service: May 12, 2016. Provider Documentation: SUBJECTIVE: Pt's status remains unchanged staring , no sign of recognition , does not appear to be aware of her surroundings said " fine " briefly when asked how she was remains NPO for severe dysphagia very poor prognosis with advanced dementia , Dysphagia -unable to tolerate PO OBJECTIVE: Vital Signs-as noted below Exam: limited exam as pt unable to co-operate General-elderly female, able to speak minimum words Eyes-sclera non icteric HEENT : oral mucosa moist, does not have any teeth , no denture Neck-no thyromegaly detected Lungs-diminished Heart-regular Abdomen-soft, Extremities-no rash noted Neuro-advanced dementia , Lab data as noted below. ASSESSMENT & PLAN: METABOLIC ENCEPHALOPATHY presented with worsening of mental status /metabolic encephalopathy due to electrolyte derangement , dehydration , infection Patient with underlying dementia; minimally verbal at baseline not much improvement of status after correction of dehydration and electrolytes CT head- no acute findings speech eval appreciated - pt shows luis fernando aspiration with purred diet poor prognosis family updated , does not want feeding tube but not ready to make decision for Hospice /palliative care Hospice /palliative care will be appropriate SEVERE DYSPHAGIA : unable to swallow Pureed , sips of water very poor prognosis Family does not want feeding tube Hospice /Palliative care would be appropriate Palliative care consult requested ACUTE HYPERNATREMIA Likely from dehydration resolved Nephrology consulted- appreciate input poor prognosis HYPOGLYCEMIA presented with hyperglycemia was on insulin [facility] has been following for glycemia control developing progressive hypoglycemia due to NPO status ' changed IVF to D5NSS @ 50 ml follow BSG ; insulin D//amarjit poor prognosis waiting for family visit and recommendation for further care/nutrition UTI: Urine cx -gram negative bacilli E.coli ESBL /MDR possible caused severe dehydration , confusion treated with IV Rocephin per sensitivity ID consult appreciated completed last day of ABx therapy on 05/09/16 IV Rocephin D.amarjit DERRICK /ATN resolved wu IV hydration due to dehydration has CKD stage 3 presented with Cr 2.5 with baseline approximately 1.0 renal function gradually improved ; Cr 0.9 Nephrology consulted DVT PROPHYLAXIS SCD's CODE STATUS DNR DISPOSITION resident at [facility] given severe dysphagia , unable to take PO , poor candidate for PEG /high risk for dehydration hospice /palliative care would be appropriate family updated by myself multiple time does not want Feeding time , but not decisive regarding hospice waiting for family members to make decision regarding further care for the pt Vital Signs: Date Time Temp Pulse Resp B/P Pulse Ox O2 Delivery O2 Flow Rate FiO2 05/12/16 08:48 36.3 79 20 105/68 97 Room Air 05/12/16 07:15 Room Air 05/11/16 23:50 Room Air 05/11/16 23:31 36.4 84 18 111/67 99 Room Air 05/11/16 16:05 35.7 72 16 115/67 97 Room Air 05/11/16 16:00 Room Air Lab Results: Results Past 24 Hours Test 05/11/16 18:05 05/11/16 23:56 05/12/16 05:51 Range/Units Bedside Glucose 83 115 174 70-90 mg/dl
--- NOTE | 2016-05-12 15:02 | Progress Note ---
Progress Note ATTENDING NOTE: SPOKE WITH GRAND DAUGHTER KEE SWATI # [phone] UPDATED REGARDING PT'S UNCHANGED STATUS , NO IMPROVEMENT WITH DYSPHAGIA GRAND DAUGHTER MENTIONS -FAMILY IS AGREEABLE FOR RETURN TO [facility] WITH [employer] UPDATED
--- NOTE | 2016-05-12 15:06 | Discharge Instructions ---
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 Additional Information Patient informed of condition: Yes Advance Directives: Yes DNR: Yes Level of Care: Other (HOSPICE ) Communicable Disease: No Prognosis: Deteriorating (HOSPICE /PALLIATVE CARE ) King Catheter: Yes Current Hospital Diet Patient's current hospital diet: Diabetes Type 2 Diet Discharge Diet Recommended Diet: Regular Diet Diet Texture: Pureed (blended smooth) (PERMISSIVE ASPIRATION -SEVERE DYSPHAGIA , UNABLE TO TOLERATE PO , OFFER FOOD ONLY FOR COMFORT CARE ) Liquid Consistency: [place] Thick Pending Studies Studies pending at discharge: no Laboratory Results Hemoglobin A1c Test 05/06/16 04:15 Range/Units Estimated Average Glucose 217 mg/dl Hemoglobin A1c 9.2 H 4.5-5.6 % Medical Emergencies . Who to Call and When: Medical Emergencies: If at any time you feel your situation is an emergency, please call 911 immediately. . Non-Emergent Contact Non-Emergency issues call your: Primary Care Provider (HOSPICE AGENCY ) . . "Provider Documentation" section prepared by Betty Edgar. Core Measure Problem Core Measures: None
[2016-05-12 15:42] VITALS: BP 134/59; PULSE 75; TEMP 36.1; O2SAT 98
[2016-05-12] MEDS: D5W AND NSS 1,000 ML IV SCH (17:52)
[2016-05-12 23:08] VITALS: BP 126/67; PULSE 77; TEMP 36.3; O2SAT 96
[2016-05-13 07:27] VITALS: BP 122/71; PULSE 73; TEMP 36.4; O2SAT 98
[2016-05-13] MEDS: MENTHOL-ZINC OXIDE 360 APPLN/120 GM TUBE EXT SCH (08:32)
[2016-05-13] MEDS: ARTIFICIAL TEARS OP SOLN OPB SCH ×2 (08:32)
[2016-05-13] MEDS: BACITRACIN OINT 15 GM TUBE EXT SCH (08:32)
[2016-05-13] MEDS: KETOCONAZOLE EXT SCH (08:32)
[2016-05-13 09:54] VITALS: BP 122/71; PULSE 73; TEMP 36.4; O2SAT 98
--- NOTE | 2016-05-13 10:22 | Progress Note ---
Medicine Progress Note Date & Time of Visit: May 13, 2016 at 10:15. Subjective seen laying in bed, eyes mostly closed, opens slowly with verbal stimuli when asked how she is feeling, patient said "fine",otherwise appears lethargic, not in distress says "no" when asked if she is having pain no other signs/symptoms noted Objective Last 8 Hrs Date Time Temp Pulse Resp B/P Pulse Ox O2 Delivery O2 Flow Rate FiO2 05/13/16 09:54 36.4 73 20 98 Room Air 05/13/16 07:46 Room Air 05/13/16 07:27 36.4 73 20 122/71 98 Room Air Physical Exam: General-lethargic, opens eyes slowly to verbal stimuli Lungs-clear breath sounds bilaterally Heart-normal rate, regular rhythm, no murmurs Abdomen-non distended, soft, nontender Extremities-no edema Neuro-lethargic Laboratory Results: Last 24 Hours Test 05/12/16 16:28 05/12/16 20:37 05/13/16 00:21 05/13/16 06:07 Bedside Glucose 220 mg/dl 238 mg/dl 232 mg/dl 225 mg/dl Assessment & Plan METABOLIC ENCEPHALOPATHY presented with worsening of mental status /metabolic encephalopathy due to electrolyte derangement , dehydration , infection Patient with underlying dementia; minimally verbal at baseline not much improvement of status after correction of dehydration and electrolytes - CT head- no acute findings speech eval appreciated - pt shows luis fernando aspiration with water swabs, NPO including medications recommended - poor prognosis family updated , does not want feeding tube Dr. Edgar (Hospitalist) discussed with the family, patient to return to [facility] under Hospice SEVERE DYSPHAGIA unable to swallow Pureed , sips of water , even water swabs Speech Therapy recommendations: STRICT NPO very poor prognosis Family declining feeding tube ACUTE HYPERNATREMIA Likely from dehydration resolved with IV fluids Nephrology consulted HYPOGLYCEMIA presented with hyperglycemia pharmacy consulted for glycemia control Insulin discontinued as patient was hypoglycemic, poor oral intake UTI: Urine cx -gram negative bacilli E.coli ESBL /MDR treated with IV Rocephin per sensitivity ID consulted DERRICK /ATN resolved wuth IV hydration due to dehydration has CKD stage 3 presented with Cr 2.5 with baseline approximately 1.0 renal function gradually improved ; Cr 0.9 Nephrology consulted DVT PROPHYLAXIS SCD's ordered CODE STATUS DNR DISPOSITION patient to return to [facility] under Hospice Current Inpatient Medications: Current Inpatient Medications Medications (Trade) Dose Ordered Sig/Christiane Route Start Time Stop Time Status Last Admin Dose Admin Ondansetron HCl (Zofran Inj) 4 mg Q6H PRN IV 05/05/16 22:45 06/04/16 22:44 Menthol/Zinc Oxide (Calmoseptine Oint) 1 appln TID EXT 05/06/16 09:00 06/05/16 08:59 05/13/16 08:32 1 APPLN Artificial Tears (Artificial Tears) 1 drops QID OPB 05/06/16 09:00 06/05/16 08:59 05/13/16 08:32 1 DROPS Bacitracin (Bacitracin Oint) 1 appln BID EXT 05/06/16 09:00 06/05/16 08:59 05/13/16 08:32 1 APPLN Miscellaneous Information (Order Awaiting Action) 1 ea QS N/A 05/06/16 08:00 06/05/16 07:59 Ketoconazole (Nizoral 2% Shampoo) 1 appln TuFr@0900 EXT 05/09/16 09:00 06/08/16 08:59 05/13/16 08:32 1 APPLN Glucose (Glucose 40% Gel) 15-30 GRAMS 15 GRAMS... UD PRN PO 05/05/16 22:45 06/04/16 22:44 Glucose (Glucose Chew Tab) 4-8 Tablets 4 Tabl... UD PRN PO 05/05/16 22:45 06/04/16 22:44 Dextrose (Dextrose 50% 50ML Syringe) 25-50ML OF 50% DW IV FOR... UD PRN IV 05/05/16 22:45 06/04/16 22:44 Glucagon (Glucagon Inj) 1 mg UD PRN SQ 05/05/16 22:45 06/04/16 22:44 Sodium Biphosphate/ Sodium Phosphate 132 ml 132 ml DAILY PRN UT 05/09/16 11:45 06/08/16 11:44 Dextrose/Sodium Chloride (D5W And Nss) 1,000 ml @ 50 mls/hr Q20H IV 05/11/16 21:45 06/10/16 21:44 05/12/16 17:52 50 MLS/HR
--- NOTE | 2016-05-13 10:25 | Discharge Summary ---
Discharge Summary Admission Date: May 05, 2016 at 22:32 Discharge Date: May 12, 2016 Discharge Disposition: detention facility Principal Diagnosis: METABOLIC ENCEPHALOPATHY due to electrolyte derangement , dehydration , infection Secondary Diagnoses/Problems: Please refer to hospital course below. Consultations: Nephrology, Infectious Disease Pending Studies/Follow-Up: Please refer to hospital course below. Medication Reconciliation Continued Medications: Artificial Tear Solution (Genteal Tears Liquid Drop 0.1-0.2-0.3 %) 1 Noa Noa 1 DROP OPB QID Bacitracin (Topical) (Bacitracin) 500 Unit/Gm Oin 1 APPLN TOP BID for 7 Days, #30 GM Apply to left upper chest scratch BID Camphor & Menthol (Men-Phor) 1 Lot Lot 1 APPLN EXT Q4 PRN for Itching Dextrose (Diabetic Use) (Insta-Glucose) 77.4 % Gel 1 TUBE PO UD PRN for HYPOGLYCEMIA PROTOCOL Ketoconazole (Topical) (Ketoconazole) 2 % Sha 1 APPLN TOP 2XWK for 30 Days, #120 ML 1 Refill Menthol-Zinc Oxide (Risamine) 1 Oin Oin 1 APPLN EXT TID Discontinued Medications: Acetaminophen (Tylenol) 500 Mg Tab 500 MG PO QID, TAB Acetaminophen (Tylenol) 325 Mg Tab 650 MG PO Q4 PRN for Pain Bisacodyl (Dulcolax) 10 Mg Sup 1 SUPP [place] UD PRN for Constipation, SUP Administer 10 mg per rectum if MOM ineffective on 4th day of no BM. Cholecalciferol (Vitamin D) 1,000 Inter.unit Tab 2000 INTER.UNIT PO DAILY, 0 Refills Citalopram (Celexa *) 20 Mg Tab 10 MG PO DAILY, 0 Refills Gabapentin (Neurontin) 100 Mg Cap 100 MG PO QAM, CAP Gabapentin (Neurontin) 300 Mg Cap 300 MG PO HS, CAP Insulin Detemir (Levemir Flextouch) 100 Unit/Ml Inj 10 UNITS SQ HS Insulin Lispro (Humalog) Inj 4 UNITS SC BID, VIAL takes with lunch and dinner. med to be held if patient eats less than 25% of meal. Insulin Lispro (Humalog) Inj 6 UNITS SC DAILY, VIAL takes with dinner. med to be held if eats less than 25% of meal Magnesium Hydroxide (Milk of Magnesia) 30 Ml Susp 30 ML PO UD PRN for Constipation If no BM for 3 days give 30 mL PRN one time daily for constipation. Senna/Docusate Sod (Senokot S) 1 Tab Tab 2 TAB PO DAILY, TAB Simvastatin (Zocor) 10 Mg Tab 10 MG PO QPM, TAB Sodium Phosphates (Fleet Enema Six Pack) 1 Haritha Haritha 1 EA [place] UD Administer per rectum PRN one time daily if dulocolax suppository not effective. Admission Information HPI (per Admitting provider): This is an 80 year old female with PMH of Alzheimer's dementia, DM type 2, anxiety, depression, and other problems listed below who was sent to the ED from [facility] for hyperglycemia and altered mental status. I am unable to obtain history from the patient as she is nonverbal at this time. Per [facility] staff, this morning patient's blood sugar was >600 this am. Insulin was given, blood sugar remained in 400s, and additional insulin was given. Starting today patient was found to be less responsive than usual. At baseline she is minimally verbal with one word answers, but today she was nonverbal. Vital signs were stable at facility without any fevers. [facility] staff notes chronic cough and states she is on a pureed diet with honey thick liquids due to aspiration concerns. She requires a 2 person assist for ambulation and is dependent for ADL's. Patient ate 100% of breakfast but no lunch or dinner. [facility] staff denies recent SOB, vomiting, diarrhea. On review of clinic notes patient was seen y Dr. Rueda on 04/23 and her insulin dose was decreased due to episodic hypoglycemia. She was noted to be nonverbal during that examination. Physical Exam (per Admitting): General Appearance: + thin, + pertinent finding (alert 80 year old female, awake, staring straight ahead, nonverbal) Head: normocephalic, atraumatic Eyes: normal inspection, PERRL, EOMI, sclerae normal ENT: normal ENT inspection, hearing grossly normal, pharynx normal, + pertinent finding (dry oral mucosa) Neck: supple, trachea midline Respiratory/Chest: lungs clear, normal breath sounds, no respiratory distress Cardiovascular: regular rate, rhythm, no murmur Abdomen/GI: normal bowel sounds, non tender, soft Extremities/Musculoskelatal: no calf tenderness, no pedal edema Neurologic/Psych: alert, normal mood/affect, oriented x 3, + pertinent finding (generally weak, could follow a few simple commands- could sqeeze hands and move toes bilaterally strength 2/5) Skin: normal color, warm/dry, + pertinent finding (skin is dry ) Hospital Course METABOLIC ENCEPHALOPATHY presented with worsening of mental status /metabolic encephalopathy due to electrolyte derangement , dehydration , infection Patient with underlying dementia; minimally verbal at baseline not much improvement of status after correction of dehydration and electrolytes - CT head- no acute findings speech eval appreciated - pt shows luis fernando aspiration with water swabs, NPO including medications recommended - poor prognosis family updated , does not want feeding tube Dr. Edgar (Hospitalist) discussed with the family, patient to return to [facility] under Hospice SEVERE DYSPHAGIA unable to swallow Pureed , sips of water , even water swabs Speech Therapy recommendations: STRICT NPO very poor prognosis Family declining feeding tube ACUTE HYPERNATREMIA Likely from dehydration resolved with IV fluids Nephrology consulted HYPOGLYCEMIA presented with hyperglycemia pharmacy consulted for glycemia control Insulin discontinued as patient was hypoglycemic, poor oral intake UTI: Urine cx -gram negative bacilli E.coli ESBL /MDR treated with IV Rocephin per sensitivity ID consulted DERRICK /ATN resolved wu IV hydration due to dehydration has CKD stage 3 presented with Cr 2.5 with baseline approximately 1.0 renal function gradually improved ; Cr 0.9 Nephrology consulted DVT PROPHYLAXIS SCD's ordered CODE STATUS DNR DISPOSITION patient to return to [facility] under Hospice Total time spent on discharge = 25 minutes This includes examination of the patient, discharge planning, medication reconciliation, and communication with other providers. 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 Additional Information Patient informed of condition: Yes Advance Directives: Yes DNR: Yes Level of Care: Other (HOSPICE ) Communicable Disease: No Prognosis: Deteriorating (HOSPICE /PALLIATVE CARE ) King Catheter: Yes Current Hospital Diet Patient's current hospital diet: Diabetes Type 2 Diet Discharge Diet STRICT NPO (including medication) with mouth moistening for pt comfort--use lightly wet swabs so water does not get aspirated causing coughing (as per Speech Therapy recommendations) Pending Studies Studies pending at discharge: no Laboratory Results Hemoglobin A1c Test 05/06/16 04:15 Range/Units Estimated Average Glucose 217 mg/dl Hemoglobin A1c 9.2 H 4.5-5.6 % Medical Emergencies . Who to Call and When: Medical Emergencies: If at any time you feel your situation is an emergency, please call 911 immediately. . Non-Emergent Contact Non-Emergency issues call your: Primary Care Provider (HOSPICE AGENCY ) . . "Provider Documentation" section prepared by Betty Edgar. Core Measure Problem Core Measures: None
== END 2016-05-13 11:07 | disposition hospice, inpatient (51) | DRG 682 ==
LOC: ENRESERVDT → ENRESERVTM → CANRESERV → EDBD 19:33 → C.EDC 19:34 → C.2T 22:32 → C.MS2W 05-08 12:45
PROVIDERS: ADMIT Internal Medicine; ATTEND Internal Medicine
DX: N17.0 Acute kidney failure with tubular necrosis (principal); G93.41 Metabolic encephalopathy; N39.0 Urinary tract infection, site not specified; E87.1 Hypo-osmolality and hyponatremia; E87.0 Hyperosmolality and hypernatremia; F02.80 Dementia in other diseases classified elsewhere, unspecified severity, without behavioral disturbance, psychotic disturbance, mood disturbance, and anxiety; G30.9 Alzheimer's disease, unspecified; E86.0 Dehydration; E83.52 Hypercalcemia; D72.829 Elevated white blood cell count, unspecified; B96.20 Unspecified Escherichia coli [E. coli] as the cause of diseases classified elsewhere; E11.65 Type 2 diabetes mellitus with hyperglycemia; N18.3 Chronic kidney disease, stage 3 (moderate); E11.649 Type 2 diabetes mellitus with hypoglycemia without coma; E78.5 Hyperlipidemia, unspecified; E83.41 Hypermagnesemia; F41.9 Anxiety disorder, unspecified; F32.9 Major depressive disorder, single episode, unspecified; R13.10 Dysphagia, unspecified; Z66 Do not resuscitate; Z51.5 Encounter for palliative care; E87.6 Hypokalemia; E78.00 Pure hypercholesterolemia, unspecified; E11.40 Type 2 diabetes mellitus with diabetic neuropathy, unspecified; E11.22 Type 2 diabetes mellitus with diabetic chronic kidney disease; R26.9 Unspecified abnormalities of gait and mobility; R32 Unspecified urinary incontinence; H54.3 Unqualified visual loss, both eyes; Z79.899 Other long term (current) drug therapy; Z79.4 Long term (current) use of insulin